=== PATIENT | female | born 1985 | race African-American/Black ===

== ENCOUNTER 2020-10-20 08:56 | Outpatient (CLI) | payer BC, SELFPAY ==
--- NOTE | ~2020-10-20 | MM_ITS ---
EXAMINATION: MM screening nemo BI w dennis HISTORY: Screening TECHNIQUE: Craniocaudal and mediolateral oblique 3-D tomosynthesis images were obtained and synthetic 2-D images were generated. CAD analysis was submitted and interpreted. COMPARISON: 09/22/2015 BREAST PARENCHYMAL COMPOSITION: The breasts are extremely dense, which lowers the sensitivity of mamm ography. FINDINGS: There is a focal mass in the central aspect of the left breast posteriorly, best seen on CC dennis image 25. The right breast is stable without evidence for malignancy. IMPRESSION: 1. New right breast mass centrally and posteriorly, best seen on CC tomographic image 25. 2. Additional mammographic views and possible breast ultrasound are recommended. BI-RADS Category 0: Incomplete: Needs additional imaging evaluation. Reviewed, dictated and finalized at location A. IMPRESSION: 1. New right breast mass centrally and posteriorly, best seen on CC tomographic image 25. 2. Additional mammographic views and possible breast ultrasound are recommended . BI-RADS Category 0: Incomplete: Needs additional imaging evaluation.
== END 2020-10-20 08:57 | disposition home or self-care (01) ==
LOC: ANHIMG 09:02
PROVIDERS: Visit Provider Physician Assistant
DX: Z12.31 Encounter for screening mammogram for malignant neoplasm of breast (principal); R92.8 Other abnormal and inconclusive findings on diagnostic imaging of breast
CPT/HCPCS: 77063; 77067

== ENCOUNTER 2020-11-24 11:49 | Outpatient (CLI) | payer BC, SELFPAY ==
--- NOTE | ~2020-11-24 | MMUS_ITS ---
EXAMINATION: MM diagnostic mammo unilat LT, US breast LT complete HISTORY: Follow-up left breast asymmetry TECHNIQUE: Additional 3-D tomosynthesis images of the left breast were performed and synthetic 2-D im ages were generated. CAD analysis was submitted and interpreted. High resolution left breast ultrasou nd was performed. COMPARISON: Comparison to multiple prior studies sequentially, with oldest reviewed study dated 09/21. BREAST PARENCHYMAL COMPOSITION: The breasts are extremely dense, which lowers the sensitivity of mamm ography FINDINGS: MAMMOGRAPHIC FINDINGS: There are no suspicious masses, calcifications or architectural distortion in the left breast to sugg est malignancy. There is a benign-appearing radiolucent mass in the central aspect of the left breast measuring approximately 1.5 cm. ULTRASOUND: Complete left breast ultrasound: At 10:00, 3 cm from the nipple, there is a 5 mm cyst. This does not definitely correspond to the mammographic finding. No other discrete masses are identified. IMPRESSION: 1. Probable benign left breast mass by mammography without definite sonographic correlate. 2. Recommend 6 month follow-up diagnostic left mammogram and left breast ultrasound BI-RADS category 3, probably benign findings. Reviewed, dictated and finalized at location A. IMPRESSION: 1. Probable benign left breast mass by mammography without definite sonographic correlate. 2. Recommend 6 month follow-up diagnostic left mammogram and left breast ultras ound BI-RADS category 3, probably benign findings.
== END 2020-11-24 11:50 | disposition home or self-care (01) ==
PROVIDERS: Visit Provider Physician Assistant
DX: N63.22 Unspecified lump in the left breast, upper inner quadrant (principal)
CPT/HCPCS: 76641; 77065

== ENCOUNTER → 2022-02-18 10:35 | Outpatient (CLI) | payer OTHER, SELFPAY ==
--- NOTE | ~2022-02-18 | US_ITS ---
US abdomen complete EXAMINATION: US Abdomen Complete INDICATION: Unspecified abdomen pain. PROCEDURE: Realtime High Resolution abdomen ultrasound. COMPARISON: No prior studies for comparison FINDINGS: Gallbladder within normal limits. No gallstones, pericholecystic fluid, gallbladder wall t hickening or biliary dilatation. Common bile duct measures 3 mm. Liver echotexture is increased, consistent with fatty infiltration.. Pancreas within normal limits. Pancreatic tail is obscured by bowel gas. Spleen is unremarkeable. Renal echotexture is within norm al limits bilaterally without hydronephrosis, contour deforming mass or renal stone. Right kidney abisai sures 11.1 cm. Left kidney measures 11.7 cm. Visualized aspects of the aorta and IVC are within normal limits. Portal vein is patent. No sonograph ic Espinosa's sign indicated by the technologist. IMPRESSION: 1: Hepatic steatosis. Reviewed, dictated and finalized at location A. IMPRESSION: 1: Hepatic steatosis.
== END ==
PROVIDERS: PCP Physician Assistant; Visit Provider Physician Assistant
DX: R10.9 Unspecified abdominal pain (principal); K76.0 Fatty (change of) liver, not elsewhere classified
CPT/HCPCS: 76700

== ENCOUNTER → 2022-09-12 15:53 | Outpatient (CLI) | payer OTHER, SELFPAY ==
--- NOTE | ~2022-09-12 | US_ITS ---
EXAMINATION: US pelvic complete DATE: 09/12/2022 16:12 INDICATION: Excessive and irregular bleeding TECHNIQUE: Multiple transabdominal and endovaginal sonographic images of the pelvis were obtained. COMPARISON: 08/02/2012 FINDINGS: The uterus measures 7.4 x 4.1 x 4.5 cm. The endometrial complex measures 7 mm. The right ov michelle measures 4.1 x 4.1 x 4.3 cm and contains a 3.3 cm cyst. The left ovary measures 2.1 x 2.7 x 2.1 c m. There is normal vascular flow in the ovaries. There is no free fluid in the pelvis. IMPRESSION: 1. No sonographic correlate for the patient's symptoms. Reviewed, dictated and finalized at location A. OF TOWN COLLECTION CLERK
== END ==
PROVIDERS: PCP Nurse Practitioner; Visit Provider Nurse Practitioner
DX: N92.6 Irregular menstruation, unspecified (principal)
CPT/HCPCS: 76856

== ENCOUNTER → 2023-08-11 15:01 | Outpatient (CLI) | payer OTHER, SELFPAY ==
--- NOTE | ~2023-08-11 | US_ITS ---
EXAMINATION: US pelvic complete w TV DATE: 08/11/2023 15:36 INDICATION: Abnormal uterine bleeding TECHNIQUE: Multiple transabdominal and endovaginal sonographic images of the pelvis were obtained. COMPARISON: 09/12/2022 FINDINGS: The uterus measures 7.9 x 3.6 x 6.1 cm. There is a 3.8 x 3.9 cm hypoechoic mass of the post erior uterine body which has the appearance of an intramural fibroid. The endometrial complex measure s 5 mm. The right ovary measures 1.8 x 1.3 x 1.1 cm. The left ovary measures 3.2 x 2.2 x 3 cm. There is normal vascular flow in the ovaries. There is no free fluid in the pelvis. IMPRESSION: 1. Intramural uterine fibroid. Reviewed, dictated and finalized at location F. ATIONAL ASSISTANT
== END ==
PROVIDERS: PCP Nurse Practitioner; Visit Provider Nurse Practitioner
DX: N93.8 Other specified abnormal uterine and vaginal bleeding (principal); D25.9 Leiomyoma of uterus, unspecified
CPT/HCPCS: 76830; 76856

== ENCOUNTER 2024-09-13 10:21 | Outpatient (CLI) | payer BC, SELFPAY ==
--- NOTE | ~2024-09-13 | US_ITS ---
Right ABDOMINAL wall ULTRASOUND (Doppler ultrasound interrogation techniques used as needed for this exam.) Ordering provider: Aida Stark, DO History: . Abd wall lump . Comparison: None. FINDINGS/impression: Isoechoic tissue with no definite borders seen in the areas of concern. Reviewed, dictated and finalized at location A. WINDING MACHINE OPERATOR
== END 2024-09-13 10:22 | disposition home or self-care (01) ==
PROVIDERS: PCP Family Medicine; Visit Provider Family Medicine
DX: R93.89 Abnormal findings on diagnostic imaging of other specified body structures (principal)
CPT/HCPCS: 76705

== ENCOUNTER 2024-11-14 10:28 | Outpatient (CLI) | payer BC, SELFPAY ==
--- NOTE | ~2024-11-14 | MMUS_ITS ---
EXAMINATION: MM diagnostic nemo BI w dennis, US breast RT complete HISTORY: Palpable right breast abnormality TECHNIQUE: Additional 3-D tomosynthesis images of the breasts were performed and synthetic 2-D images were generated. CAD analysis was submitted and interpreted. High resolution complete right breast ul trasound was performed. COMPARISON: Comparison to multiple prior studies sequentially, with oldest reviewed study dated 09/21. BREAST PARENCHYMAL COMPOSITION: Dense: The breasts are extremely dense, which lowers the sensitivity of mammography. FINDINGS: MAMMOGRAPHIC FINDINGS: There is a developing mass in the upper outer quadrant of the right breast, posterior third. There is stable left mammogram without evidence for malignancy. No new masses, calcifications or architectura l distortion to suggest malignancy. ULTRASOUND: Complete US of all 4 quadrants of the right breast/s and retroareolar region was reviewed. In the are a of mammographic concern at 10:00, 6 cm from the nipple there is a 3.1 cm simple cyst. At 2:00, 6 cm from the nipple there is a 8 mm cyst. No suspicious masses to suggest malignancy. IMPRESSION: 1. No evidence for malignancy in the right breast. Benign findings. 2. Routine yearly screening mammogram and regular clinical breast examination are recommended. BI-RADS Category 2: Benign finding(s). Reviewed, dictated and finalized at location A. IMPRESSION: 1. No evidence for malignancy in the right breast. Benign findings. 2. Routine yearly screening mammogram and regular clinical breast examination a re recommended. BI-RADS Category 2: Benign finding(s).
--- OUTSIDE RECORDS SUMMARY | 2024-11-14 10:46 | XMS_ITS | Encounter Summary ---
Author Organization [facility] Address [address] [place] [id number] Care Team Providers Care Clinical Quality Assurance Associate Name Role Phone Aida Stark DO Primary Care Provider [phone] Encounter Details Date Type Department Care Team (Latest Contact Info) Description 11/05/2024 Scan [facility] INFO SRVCS Scanned, Doc Med Group Social History Tobacco Use Types Packs/Day Years Used Date Smoking Tobacco: Never Smokeless Tobacco: Never Alcohol Use Standard Drinks/Week Comments Never 0 (1 standard drink = 0.6 oz pur e alcohol) PHQ-2 Answer Date Recorded Patient Health Questionnaire-2 Score 0 09/05/2024 Comments No Sex and Gender Information Value Date Recorded Sex Assigned at Female 09/05/2024 10:23 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 [place] [address] Aida Stark DO [address], [address] [place] [address] documented as of this encounter Visit Diagnoses Not on filedocumented in this encounter Care Teams Clinical Quality Assurance Associate Relationship Specialty Start Date End Date Aida Stark DO [address] [place] [address] PCP - General FAMILY PRACTICE 08/30/24 documented as of this encounter
--- OUTSIDE RECORDS SUMMARY | 2024-11-14 10:46 | XMS_ITS | Clinical Summary ---
Author Organization [facility] Address [address] [place] [address] Care Team Providers Care Document Image Technician Name Role Phone Denia Kaur Primary Care Pr ovider Source Comments [facility],non-owned Affiliates and Associated Physician Practices is amultiple site organization consisting of ambulatory clinics and hospital sitesin [place], [place], [place] and [place]. This disclosure is being madepursuant to the Care Everywhere program and may not contain all information available regarding this patient. Last updated 18.[facility] Immunizations Immunization Administration Dates Next Due FLU VACCINE QUAD IIV4 PF ID 05/18/2016 INFLUENZA VACCINE, QUADR. 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 Gender Identity Not on file Sexual Orientation Not on file Plan of Treatment Health Maintenance Due Date Last Done Comments LIPID TESTING 1984 MAMMOGRAM 1984 HIV SCREENING 01/20/1999 HEPATITIS C SCREENING 01/16/2002 DTAP/TDAP/TD VACCINES (1 - Tdap) 01/20/2003 HEPATITIS B VACCINE (1 of 3 - 19+ 3-dose series) 01/20/2003 COVID-19 VACCINE ( - 2023-2 5 season) 2024 DEPRESSION SCREENING 07/10/2024 INFLUENZA VACCINE (Season Ended) 2025 05/25/2017, 05/18/2016 ZOSTER VACCINE (1 of 2) 01/20/2034 HIB VACCINE Aged Out No longer eligi ble based on patient's age to complete this topic HPV VACCINE Aged Out No longer eligi ble based on patient's age to complete this topic MENINGOCOCCAL (Group B) VACCINE SHARED DECISION-MAKING Aged Out No longer eligible based on patient's age to complete this topic MENINGOCOCCAL GROUPS A/C/Y/W VACCINE Aged Out No longer eligible b ased on patient's age to complete this topic PNEUMOCOCCAL VACCINE Aged Out No long er eligible based on patient's age to complete this topic Insurance ANTHEM Care Teams Document Image Technician Relationship Specialty Start Date End Date Denia Kaur PA [address] [place] [address] PCP - General Physician Family Law Paralegal 05/18/16
--- OUTSIDE RECORDS SUMMARY | 2024-11-14 10:46 | XMS_ITS | Clinical Summary ---
Author Organization [facility] Address [address] [place] [address] Care Team Providers Care Photoengraver Apprentice Name Role Phone Denia Cerrato Primary Care Provider [phone] Allergies No known active allergies Medications No known medications Active Problems Problem Noted Date Diagnosed Date SOB (shortness of breath) 05/25/2018 Other chest pain 04/22/2018 Palpitations 04/22/2018 Family History Medical History Relation Name Comments Stroke Father EF Breast Cancer Maternal Aunt 1 50s and ano ther in late 60s Breast Cancer Maternal Aunt 2 LB Breast Cancer Maternal Aunt 3 CJ Stroke Maternal Grandfather EJ Lung Cancer Maternal Uncle DJ late 60s Hypertension Mother ED Breast Cancer Paternal Aunt Stroke Paternal Grandmother IK Stroke Paternal Uncle NF Ovarian Cancer Neg Hx Relation Name Status Comments Brother Alive Father EF Alive Maternal Aunt 1 Maternal Aunt 2 LB Maternal Aunt 3 CJ Maternal Grandfather EJ Maternal Uncle DJ Mother ED Alive Paternal Aunt Paternal Grandmother IK Paternal Uncle NF Sister Alive Social History Tobacco Use Types Packs/Day Years Used Date Smoking Tobacco: Never Smokeless Tobacco: Never Tobacco Cessation:Counseling Given: Yes Alcohol Use Standard Drinks/Week Comments Never 0 (1 standard drink = 0.6 oz pur e alcohol) Comments No Sex and Gender Information Value Date Recorded Sex Assigned at Not on file Legal Sex Female 8:33 AM CDT Gender Identity Not on file Sexual Orientation Not on file Last Filed Vital Signs Vital Sign Reading Time Taken Comments Blood Pressure 139/100 12/30/2021 2:09 PM CDT Pulse 84 12/30/2021 2:09 PM CDT Temperature - - Respiratory Rate - - Oxygen Saturation 98% 05/31/2019 9:24 AM BELT WEAVER Inhaled Oxygen Concentration - - Weight 72.6 kg (160 lb) 12/30/2021 2:09 PM CDT Height 147.3 cm (4' 10) 12/30/2021 2:09 PM CDT Body Mass Index 33.44 12/30/2021 2:09 PM CDT Plan of Treatment Health Maintenance Due Date Last Done Comments DTAP/TDAP/TD VACCINES (1 - Tdap) 01/20/2003 HEPATITIS B VACCINES (1 of 3 - 19+ 3-dose series) 01/20/2003 HPV/Cotest (21-29) 01/20/2005 CERVICAL CANCER SCREENING 01/20/2014 HPV/Cotest (30-65) 01/20/2014 PAP SMEAR 01/20/2014 BREAST CANCER SCREENING 2024 01/14/20, 12/30/2021, 06/29/2021 INFLUENZA VACCINE (#1) 2024 7, 05/18/2016 HPV VACCINES Aged Out No longer eligi ble based on patient's age to complete this topic Procedures Procedure Name Priority Date/Time Associated Diagnosis Comments MAMMO 3D SOHEILA SCREEN BILAT W OR WO CAD Routine 01/13/2023 11:05 AM CDT Visit for screening mammogram from Last 3 Months or Most Recently Relevant to Health Maintenance Results * MAMMO SCRN BILAT 3D SOHEILA W OR WO CAD (01/13/2023 11:05 AM CDT) Anatomical Region Laterality Modality Breast Bilateral Mammography 01/13/2023 11:0 5 AM CDT Impressions 01/13/2023 11:40 AM CDT IMPRESSION: 1. New mass within the right breast at the 11:00 position that may represent a cyst. OVERALL FINAL ASSESSMENT: BI-RADS CATEGORY 0: Incomplete, needs additional imaging evaluation RECOMMENDATIONS: 1. Recommend right breast ultrasound followed by diagnostic mammogram if necessary. Narrative 01/13/2023 11:40 AM CDT BILATERAL SCREENING DIGITAL MAMMOGRAM WITH 3D TOMOSYNTHESIS AND CAD DATE: 01/13/2023 11:05 AM DICTATION LOCATION: [facility] HISTORY: Annual screening mammogram. TECHNIQUE: Standard images of both breasts were obtained on a digital system. 2D and 3D acquisitions were obtained of both breasts. CAD was utilized. COMPARISON: Studies dating back to 10/20/2020 BREAST COMPOSITION: The breasts are heterogeneously dense, which may obscure small masses. FINDINGS: There are new dominant mass is identified within the right breast at the 10 to 11:00 position measuring up to 2 cm that may represent developing cysts. The remainder of the right breast and the contralateral left breast are unremarkable. Procedure Note Renzo Vanessa MD - 01/13/2023 BILATERAL SCREENING DIGITAL MAMMOGRAM WITH 3D TOMOSYNTHESIS AND CAD DATE: 01/13/2023 11:05 AM DICTATION LOCATION: [facility] HISTORY: Annual screening mammogram. TECHNIQUE: Standard images of both breasts were obtained on a digital system. 2D and 3D acquisitions were obtained of both breasts. CAD was utilized. COMPARISON: Studies dating back to 10/20/2020 BREAST COMPOSITION: The breasts are heterogeneously dense, which may obscure small masses. FINDINGS: There are new dominant mass is identified within the right breast at the 10 to 11:00 position measuring up to 2 cm that may represent developing cysts. The remainder of the right breast and the contralateral left breast are unremarkable. IMPRESSION: 1. New mass within the right breast at the 11:00 position that may represent a cyst. OVERALL FINAL ASSESSMENT: BI-RADS CATEGORY 0: Incomplete, needs additional imaging evaluation RECOMMENDATIONS: 1. Recommend right breast ultrasound followed by diagnostic mammogram if necessary. Anjelica Hampton MD MAMMO ORDERABLES Final Result from Last 3 Months or Most Recently Relevant to Health Maintenance Insurance [facility] [id number] Care Teams Photoengraver Apprentice Relationship Specialty Start Date End Date Denia Cerrato PA PCP - General Physician Laborer Pipeline 05/25/18
--- OUTSIDE RECORDS SUMMARY | 2024-11-14 10:46 | XMS_ITS | Clinical Summary ---
Author Organization 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 Gender Identity Not on file Sexual Orientation Not on file Last Filed Vital Signs Vital Sign Reading Time Taken Comments Blood Pressure 138/87 07/07/2011 7:04 PM RECORD CHANGER TESTER Pulse 102 07/07/2011 7:04 PM RECORD CHANGER TESTER Temperature 37.2 C (98.9 F) 07/07/2011 7:04 PM RECORD CHANGER TESTER Respiratory Rate 16 07/07/2011 7:04 PM RECORD CHANGER TESTER Oxygen Saturation 99% 06/03/2011 9:56 PM RECORD CHANGER TESTER Inhaled Oxygen Concentration - - Weight 64.4 kg (142 lb) 07/07/2011 7:04 PM RECORD CHANGER TESTER Height 149.9 cm (4' 11) 07/07/2011 7:04 PM RECORD CHANGER TESTER Body Mass Index 28.68 07/07/2011 7:04 PM RECORD CHANGER TESTER Plan of Treatment Health Maintenance Due Date Last Done Comments Hepatitis C Virus (HCV) Screening 1984 TdaP Immunization 1984 Hepatitis B Immunization (1 of 3 - 19+ 3-dose series) 01/20/2003 Pap Smear 01/20/2005 Cervical Cancer Screening (CCS) 01/20/2014 HPV/Cotest 01/20/2014 Discussion re Starting/Frequ ency of Mammograms 2024 Influenza Immunization (#1) 2024 SARS-COV-2 Immunization (2023- season) 2024 Respiratory Syncytial Virus (RSV) Immunization (Adult) (1 - 1-dose 75+ series) 01/20/2059 Meningococcal Immunization (ACWY) Aged Out No longer eligible based on patient's age to complete this topic Pneumococcal Immunization Combined Aged Out No longer eligible based on patient's age to complete this topic Rotavirus Immunization Aged Out No lo nger eligible based on patient's age to complete this topic Care Teams Ingot Passer Relationship Specialty Start Date End Date Provider, None [place] PCP - General 06/03/11
--- OUTSIDE RECORDS SUMMARY | 2024-11-14 10:46 | XMS_ITS | Clinical Summary ---
Author Organization [facility] Address Critical access hospital[address] [place] [address] Care Team Providers Care Parts Processor Name Role Phone Aida Stark DO Primary Care Provider [phone] Allergies Active Allergy Reactions Criticality Noted Date Comments Codeine Nausea Only 09/05/2024 Medications loratadine (CLARITIN) 10 MG tablet Take 1 tablet (10 mg total) by mouth daily. Active mometasone furoate (ELOCON) 0.1 % solution APPLY EXTERNALLY TO SCALP ONCE TO TWICE DAILY NEEDED. RUB IN. DO NOT RINSE 5 Active vitamin D3 (CHOLECALCIFEROL ) 1.25 mg capsuleIndicatio ns:Vitamin D deficiency Take 1 capsule (50,000 Units total) by mouth once a week for 8 doses. 4 capsule 1 5 025 Active amLODIPine (NORVASC) 5 MG tabletIndication s:Primary hypertension Take 1 tablet (5 mg total) by mouth daily. 30 tablet 2 5 025 Active vitamin D3 (CHOLECALCIFEROL ) 1.25 mg capsuleIndicatio ns:Vitamin D deficiency Take 1 capsule (50,000 Units total) by mouth once a week for 12 doses. 12 capsule 5 025 Discontin ued(Reord er) amLODIPine (NORVASC) 10 MG tabletIndication s:Primary hypertension Take 1 tablet (10 mg total) by mouth daily. 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 Need for prophylactic vaccination against hepati tis B virus 10/04/2024 Overview (10/08/2024): 10/08/2024: Titers returned low. Counseled patient that I recommend she have entire 3 dose hepatitis B vaccine series. She would like to return another day for her first immunization. Assessment & Plan (10/31/2024 10:49 AM CDT): Discussed with patient that it is recommended she receive hepatitis B vaccine as she is not immune and will require if she is attempting to get as hepatitis B can be transferred from mother to child. Hepatitis B vaccine is ordered and patient can receive at any time if she would like to come in for nurse visit. Assessment & Plan (10/08/2024 9:17 AM CDT): 10/08/2024: Titers returned low. Counseled patient that I recommend she have entire 3 dose hepatitis B vaccine series. She would like to return another day for her first immunization. Hepatitis B immunization ordered. She was given [facility] VIS to review. Primary hypertension 09/24/2024 Overview (10/31/2024): Diagnosis: 09/24/2024 Regimen: Amlodipine 5mg daily GFR: > 90, 09/05/2024 Urine microalbumin to creatinine ratio: Ordered Blood pressure monitoring device at home: Yes, Omron arm cuff 09/24/2024: She reports she started taking her blood pressure at home 09/18/2024 and took BP once per day Systolic ranged from 136-146 Diastolic range from 96-105 She used Omron arm cuff at home In office, her BP cuff measured 140/107 10/08/2024: She has been taking her blood pressure measurements at home and systolic blood pressure have been between 106-160 and diastolic blood pressure measurements have been between 84-104. She reports no complaints or concerns after starting amlodipine 5 mg daily. She reports she had a headache a few days afterwards and went to pharmacy and was told she could take Tylenol. BP cuff from home in office read 123/92 10/31/2024: She reports blood pressure readings at home ar around 107/77. She reports she has been taking amlodipine 5mg daily as she was hesitant to increase and concerned it may drop her blood pressure too much. Blood pressure cuff from home in office on left arm read 112/83. Assessment & Plan (10/31/2024 10:51 AM CDT): Diastolic blood pressure is mildly elevated in office. Discussed with patient we will continue amlodipine 5 mg daily. I like her to continue to monitor her blood pressure at home. She is counseled again regarding diet and lifestyle modifications that can help improve her blood pressure. Urine microalbumin to creatinine ratio ordered. Patient is to bring back urine sample from first morning urine to have lab sent off. Assessment & Plan (10/08/2024 9:19 AM CDT): Blood pressure is elevated in office today and at home. Would like to increase amlodipine to 10 mg daily. Discussed with patient low-sodium diet and lifestyle modifications regarding exercise and diet that can help improve blood pressure. I would like her to continue to monitor her blood pressure at home and bring in log to next appointment. Assessment & Plan (09/24/2024 8:23 AM CDT): Blood pressure remained elevated in office. I am diagnosing patient with hypertension. I recommend we start medication therapy and patient is agreeable. Will start amlodipine 5 mg once daily. She reports she cannot swallow most pills however instructed she can crush her amlodipine. Patient instructed to continue monitoring blood pressure at home and bring in log at next visit in 2 weeks. She is counseled on potential side effects of medication. Chronic seborrheic dermatitis 09/05/2024 Overview (09/05/2024): Initial visit 09/05/2024: She reports she is following with dermatology and is using prescription topical treatment for seborrheic dermatitis on her scalp. Dense breast tissue 09/05/2024 Overview (09/05/2024): Initial visit 09/05/2024: She send previous mammogram and noted dense breast tissue and had to have additional imaging Uterine fibroid 09/05/2024 Overview (09/05/2024): Initial visit 09/05/2024: She reports she has uterine fibroid. She reports she has had a uterine polyp removed during hysteroscopy in the past. Family history of hypertension 09/05/2024 Overview (09/05/2024): Initial visit 09/05/2024: In multiple family members Family history of stroke 09/05/2024 Overview (09/05/2024): Initial visit 09/05/2024: In multiple family members particularly on paternal side Breast cancer screening by mammogram 09/05/2024 Overview (10/31/2024): Initial visit 09/05/2024: She reports last mammogram was in 2022. She is requesting order for mammogram. She reports she has dense breast tissue and previous lump was found and required additional mammogram and ultrasound. 10/31/2024: She reports she went to see systems admin on Monday and lump was found in breast and so diagnostic mammogram and ultrasound was ordered for November 14, 2024. Assessment & Plan (10/31/2024 10:12 AM CDT): Counseled to keep appointment for diagnostic mammogram and ultrasound. Assessment & Plan (09/05/2024 12:01 PM CORE DRILL OPERATOR HELPER): Screening mammogram ordered to [facility] History of surgical removal of keloid 09/05/2024 Overview (09/05/2024): Initial visit 09/05/2024: She reports she has had 2 keloids removed. One was on her right ear related to ear piercing and one was on lower extremity related to scar from injury. Abdominal wall lump 09/05/2024 Overview (10/31/2024): Initial visit 09/05/2024: She reports she noticed a lump on abdomen a few months ago. She denies change in size or character. She denies abdominal pain at the area. She denies previous trauma to that site. She denies previous injections into her abdomen. She denies any changes in her bowels or bladder or other systemic physical changes. She denies previous experience similar to this. 09/24/2024: U/S 09/13/2024 showed Isoechoic tissue with no definite borders seen in the areas of concern. Patient reports that she did have an accidental fall where she hit that side of her abdomen several months ago. 10/31/2024: She reports she is yet to have CT. She is asking if we can order MRI in lieu. Assessment & Plan (10/31/2024 10:48 AM CDT): Discussed with patient that I would recommend CT at this time. I would like her to prioritize her diagnostic mammogram prior to CT abdomen. Assessment & Plan (10/08/2024 9:21 AM CDT): Unsure what the mass/lump is. Ultrasound shows that tissue appears similar to surrounding tissues. Discussed with patient that I would like to order further imaging with CT exam to better differentiate. My suspicion is that this could potentially be related to her body scar formation as she has a predisposition to forming keloids and she did have minor trauma to that area prior to onset. Assessment & Plan (09/24/2024 8:27 AM CDT): Again, unsure what the mass/lump is. Ultrasound shows that tissue appears similar to surrounding tissues. Discussed with patient that we may need further imaging with CT exam and/or biopsy to distinguish tissue. Could potentially be related to her body scar formation as she has a predisposition to forming keloids and she did have minor trauma to that area prior to onset. Assessment & Plan (09/05/2024 12:07 PM CORE DRILL OPERATOR HELPER): Superficial, palpable approximately 5 cm x 3 cm lump/mass in right upper quadrant of abdomen approximately 5 cm superior lateral to umbilicus. Unknown etiology at this time. Would like to obtain ultrasound to characterize more. Vitamin D deficiency 11/03/2023 Overview (10/31/2024): Initial visit 09/05/2024: She reports she was being treated with vitamin D supplementation prescription. She reports she has not been taking for several months. She reports this was not reevaluated with lab work. 09/24/2024: She reports she has not started vitamin D supplementation yet. Component Ref Range & Units 09/05/24 1155 VITAMIN D 25 HYDROXY TOTAL S/P/B 30 - 100 NG/ML 8.6 Low 10/31/2024: She reports pharmacy only gave her 4 capsules at a time and she needs additional vitamin D. Assessment & Plan (10/31/2024 10:14 AM CDT): As pharmacy only gave patient 4 capsules at a time, will refill for 4 capsules for the next 4 weeks and please refill so she can take vitamin D3 once weekly. Plan to recheck levels after patient completes course of high-dose vitamin D3. Assessment & Plan (09/24/2024 8:24 AM CDT): She is instructed to take daily multivitamin and we will supplement with high-dose vitamin D3 supplementation 50,000 IU once weekly for 12 weeks and then recheck levels. Assessment & Plan (09/05/2024 11:59 AM CORE DRILL OPERATOR HELPER): Vitamin D levels ordered. 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 Mixed hyperlipidemia 02/10/2023 Overview (09/24/2024): Initial visit 09/05/2024: She reports she has been diagnosed with high cholesterol. She reports she has not been on medication. Component Ref Range & Units 09/05/24 1155 CHOLESTEROL <200 MG/DL 216 High TRIGLYCERIDES <150 MG/DL 63 HDL >40 MG/DL 54 LDL-C <100 MG/DL 149 High VLDL CALCULATION 5 - 28 MG/DL 13 CHOL/HDL RATIO 0.0 - 4.0 4.0 LDL/HDL 0.41 - 2.13 2.8 High NON HDL CHOLESTEROL <140 MG/DL 162 High Assessment & Plan (09/24/2024 8:25 AM CDT): This patient's ASCVD risk score is relatively low, we do not necessarily need to start medication at this time. I recommend in the setting of patient's age and comorbidities that she have CT calcium score evaluation. She is agreeable. She is counseled that this is an [id number] cost. Patient counseled on important dietary interventions that can help decrease cholesterol such as increasing intake of dietary fiber through whole grains and legumes as well as fruits and vegetables and decreasing intake of saturated fats such as meat and eggs. Patient is counseled that recommended daily amount of dietary fiber for women is 25 g however I recommend she aim for at least 30 g. She can supplement diet with psyllium husk such as found in Metamucil daily in addition to increasing dietary intake of whole grains, fruits and vegetables. The 10-year ASCVD risk score (Arabella BEVERLY, et al., 2019) is: 0.7% Values used to calculate the score: Age: 39 years Sex: Female Is Non- : Yes Diabetic: No Tobacco smoker: No Systolic Blood Pressure: 130 mmHg Is BP treated: No HDL Cholesterol: 54 MG/DL Total Cholesterol: 216 MG/DL Assessment & Plan (09/05/2024 12:00 PM CORE DRILL OPERATOR HELPER): Fasting lipid panel ordered today. Hyperinsulinism 02/10/2023 Palpitations 04/22/2018 Overview (09/05/2024): Initial visit 09/05/2024: She reports she expresses occasional palpitations particularly when drinking soda such as root beer. She reports these are not persistent. Lumbago 04/14/2015 Vaginospasm 10/30/2014 Overview (09/05/2024): Initial visit 09/05/2024: She reports this is still current. She follows with PATHOLOGY LABORATORY DIRECTOR. Normocytic anemia 02/11/2013 Overview (09/24/2024): Component Ref Range & Units 09/05/24 1155 WBC 4.00 - 10.80 x10'3/uL 4.37 RBC 4.10 - 5.40 x10'6/uL 4.23 HGB 12.0 - 16.0 G/DL 11.3 Low HCT 36.0 - 47.0 % 33.8 Low MCV 78.0 - 100.0 FL 79.9 MCH 27.0 - 31.0 PG 26.7 Low MCHC 33.0 - 36.0 G/DL 33.4 RDW 11.5 - 14.5 % 13.2 PLT 150 - 350 x10'3/uL 227 MPV 7.4 - 10.4 FL 10.4 Assessment & Plan (09/24/2024 8:23 AM CDT): Anemia is mild. I suspect related to occasional heavy menstrual bleeding. No concerns at this time. Will continue to monitor. Patient instructed to take daily multivitamin. Resolved Problems Problem Noted Date Diagnosed Date Resolved Date Cellulitis of face 09/05/2024 Elevated blood-pressure read ing without diagnosis of hypertension 09/05/2024 09/24/2024 Overview (09/05/2024): Initial visit 09/05/2024: She denies previous diagnosis of hypertension however reports she has been told her blood pressure has been elevated in the past. Assessment & Plan (09/05/2024 11:59 AM CORE DRILL OPERATOR HELPER): Discussed with patient that blood pressure is elevated in the setting of elevated blood pressure and family history, I would like her to obtain blood pressure monitoring device and take blood pressure measurements at home and keep log and bring in log and device at next appointment. She was instructed on how to take blood pressure measurements appropriately. Frontal sinusitis 09/05/2024 09/05/2024 Frontal headache 09/05/2024 09/05/2024 Pain of breast 09/05/2024 09/05/2024 Need for diphtheria-tetanus- pertussis (Tdap) vaccine 09/05/2024 09/24/2024 Overview (09/24/2024): Initial visit 09/05/2024: She reports it has been over 10 years since last Tdap booster. Tdap booster given 09/05/2024 Assessment & Plan (09/05/2024 12:06 PM CORE DRILL OPERATOR HELPER): Tdap booster given today. She was given CDC VIS. She is counseled on potential side effects. Acute urinary tract infection 02/10/2023 09/05/2024 Impaired fasting glucose 02/10/2023 Overview (09/24/2024): Initial visit 09/05/2024: She reports she has been told her fasting glucose has been elevated in the past. 09/24/2024: Fasting blood glucose returned on [facility] at 92 09/05/2024. Assessment & Plan (09/05/2024 12:00 PM CORE DRILL OPERATOR HELPER): Fasting CMP ordered today. Left sided abdominal pain 01/24/2022 Thoracic back pain 03/06/2015 Pain in pelvis 10/30/2014 09/05/2024 Dysfunctional uterine bleeding 02/11/2013 09/05/2024 Encounters Date Type Department Care Team Description 11/05/2024 Scan [facility] INFO SRVCS Scanned, Doc Med Group 11/04/2024 Results Follow-Up [facility] [place] [address] [facility] [address] [place] [address] Aida Stark, TEST URINE, ALBUMIN URINE RANDOM W/CREATININE 11/04/2024 Travel 10/31/2024 9:20 AM CDT Office Visit [place] [id number] [place] [address] Aida Stark, Hypertension (4 week follow up. /Pt states BP has been good. /Pt states she has been checking at home. /No questions or concerns today. ) 10/31/2024 Telephone [place] [address] [place] [address] [place] [id number] Aida Stark, DO Record Request 10/31/2024 Travel 10/08/2024 8:20 AM CDT Office Visit [place] [address] [place] [address] [place] [address] Aida Stark, Hypertension (Pt states BP has been good. /Been checking at home. /No questions or concerns today./) 10/08/2024 Telephone [place] [address] [address] Aida Stark, Orders 10/08/2024 Travel 09/24/2024 7:20 AM CDT Office Visit [place] [address] [place] [address] [address] [place] [address] Aida Stark, Lab Results (Pt had labs done 09/05/2024./Results in chart. /No questions or concerns today /); Follow Up (Abdominal lump, elevated blood pressure reading) 09/24/2024 Travel 09/09/2024 Scan [facility] [place] INFO SRVCS Scanned, Doc Med Group 09/05/2024 10:20 AM CORE DRILL OPERATOR HELPER Office Visit [place] [address] [place] [address] [address] [place] [address] Aida Stark, New Patient (Pt would like to discuss a lump in her abdomen. /Been there for two months. No not painful, does not move. /Mid right side /) 09/05/2024 - 09/05/2024 11:59 PM CORE DRILL OPERATOR HELPER Hospital Encounter [facility] [address] [place] [address] Aida Stark, Discharge Disposition: Home or Self Care (Routine Discharge) 09/05/2024 Telephone [facility] - [address] [place] [address] Aida Stark DO Record Request 09/05/2024 Travel from Last 3 Months Immunizations Immunization Administration Dates Next Due Fluzone Intradermal Quad (IIV4) 05/18/2016 Influenza (Generic) 05/10/2017,07/10/2014,2013 Influenza Adult (Generic) 04/28/2020,05/23/2019, 05/23/2018,05/25/2017 Tdap (Adacel) 09/05/2024 Family History Medical History Relation Comments Hypertension Brother 1 COPD Father Stroke Father Breast Cancer Maternal Aunt Heart Disease Maternal Grandfather Hypertension Maternal Grandmother Stroke Maternal Grandmother Lung Cancer Maternal Uncle Hypertension Mother No Known Problems Paternal Grandfather Stroke Paternal Grandmother Stroke Paternal Uncle 1 Stroke Paternal Uncle 2 Graves' disease Sister 1 Relation Status Comments Brother 1 Alive Brother 2 Alive Father Maternal Aunt Maternal Grandfather Maternal Grandmother Alive Maternal Uncle Mother Alive Paternal Grandfather Paternal Grandmother Paternal Uncle 1 Paternal Uncle 2 Sister 1 Alive Sister 2 Alive Social History Tobacco Use Types Packs/Day Years Used Date Smoking Tobacco: Never Smokeless Tobacco: Never Tobacco Cessation:Counseling Given: No Alcohol Use Standard Drinks/Week Comments Never 0 (1 standard drink = 0.6 oz pur e alcohol) PHQ-2 Answer Date Recorded Patient Health Questionnaire-2 Score 0 09/05/2024 Comments No Sex and Gender Information Value Date Recorded Sex Assigned at Female 09/05/2024 10:23 AM CORE DRILL OPERATOR HELPER Legal Sex Female 9:28 AM CORE DRILL OPERATOR HELPER Gender Identity Female 09/05/2024 10:23 AM CORE DRILL OPERATOR HELPER Sexual Orientation Not on file Last Filed Vital Signs Vital Sign Reading Time Taken Comments Blood Pressure 126/82 10/31/2024 10:15 AM CDT Louisa nual cuff Pulse 90 10/31/2024 9:33 AM CDT Temperature 36 C (96.8 F) 10/31/2024 9:33 AM CDT Respiratory Rate 16 10/31/2024 9:33 AM CDT Oxygen Saturation 100% 10/31/2024 9:33 AM CDT Inhaled Oxygen Concentration - - Weight 69.9 kg (154 lb) 10/31/2024 9:33 AM CDT Height 147.3 cm (4' 10) 10/31/2024 9:33 AM CDT Body Mass Index 32.19 10/31/2024 9:33 AM CDT Plan of Treatment Upcoming Encounters Date Type Department Care Team (Late st Contact Info) Description 12/12/2024 9:40 AM CDT Office Visit [facility] [place] [address] [place], [place] [id number] Aida Stark, DO [address] [place], [place] [id number] Health Maintenance Due Date Last Done Comments Annual Physical 01/20/1987 Cervical Cancer Screening Pa p with HPV Testing (Age 30 to 64) Every 5 Years 01/20/2014 Mammogram Screening 01/13/2025 01/13/2023, 12/30/2021, 06/29/2021 Cervical Cancer Screening Pa p Smear (Age 30 to 64) Every 3 Years 08/30/2025 08/30/2022 Cervical Cancer Screening with HPV 08/30/2025 COVID-19 Vaccine ( - 2023-2 5 season) 2025 Postponed from 03/10 (Patient Refused) Hepatitis B Vaccines (1 of 3 - 19+ 3-dose series) 09/05/2025 Postponed from 01/07 (Patient/Guardian Refusal) DTaP, Tdap and Td Vaccines ( 2 - Td or Tdap) 09/05/2034 09/05/2024 Hepatitis C Completed 09/05/2024 PHQ-2 (Physician Echola) Completed 09/05/2024 HPV Vaccines Aged Out No longer eligi ble based on patient's age to complete this topic Meningococcal B Vaccine Aged Out No l onger eligible based on patient's age to complete this topic Meningococcal Vaccine Aged Out No krish hugo eligible based on patient's age to complete this topic Pneumococcal Vaccine: Pediatrics (0 to 5 Years) and At-Risk Patients (6 to 49 Years) Aged Out No longer eligible b ased on patient's age to complete this topic RSV Immunizations Under 20 Months Aged Out No longer eligible b ased on patient's age to complete this topic Procedures Procedure Name Priority Date/Time Associated Diagnosis Comments ALBUMIN URINE RANDOM W/CREATININE Routine 11/04/2024 1:28 PM CDT Primary hypertension TEST URINE Routine 11/04/2024 8:00 AM CDT Abdominal wall lump US ABD LIMITED Routine 09/13/2024 12:00 AM CORE DRILL OPERATOR HELPER Abdominal wall lump CBC W/DIFF AUTOMATED Routine 09/05/2024 11:55 AM CORE DRILL OPERATOR HELPER Annual physical exam COMPREHENSIVE METABOLIC PANEL Routine 09/05/2024 11:55 AM CORE DRILL OPERATOR HELPER Impaired fasting glucose Annual physical exam LIPID PANEL Routine 09/05/2024 11:55 AM CORE DRILL OPERATOR HELPER Mixed hyperlipidemia Annual physical exam VITAMIN D, 25 OH Routine 09/05/2024 11:5 5 AM CORE DRILL OPERATOR HELPER Vitamin D deficiency Annual physical exam TSH W/REFLEX Routine 09/05/2024 11:55 AM CORE DRILL OPERATOR HELPER Screening for thyroid disorder Annual physical exam URINALYSIS, AUTO, COMPLETE Routine 09/05/2024 11:55 AM CORE DRILL OPERATOR HELPER Screening for blood or protein in urine Annual physical exam HEPATITIS C ANTIBODY Routine 09/05/2024 11:55 AM CORE DRILL OPERATOR HELPER Annual physical exam Encounter for hepatitis C screening test for low risk patient HEPATITIS B SURFACE ANTIBODY Routine 09/05/2024 11:55 AM CORE DRILL OPERATOR HELPER Need for hepatitis B screening test HEPATITIS B SURFACE AG, EIA Routine 09/05/2024 11:55 AM CORE DRILL OPERATOR HELPER Need for hepatitis B screening test HEPATITIS B CORE AB IGM Routine 09/05/2024 11:55 AM CORE DRILL OPERATOR HELPER Need for hepatitis B screening test OUTSIDE CYTOPATH CERV/VAG INTERPRET (PAP) (SCAN ORDER) 08/30/2022 from Last 3 Months or Most Recently Relevant to Health Maintenance Results * ALBUMIN URINE RANDOM W/CREATININE (11/04/2024 1:28 PM CDT) MICROALBUMIN (U) 9.8 <20 MG/L 11/05/19 4:20 PM CDT [facility] CREATININE RANDOM (U) 63.9 MG/DL 11/04/2024 4:20 PM CDT [facility] ALBUMIN/CREAT RATIO 15.3 <30 MG/G 11/04/2024 4:20 PM CDT [facility] URINE SPECIMEN / Unknown 11/04/2024 1:28 PM CDT Aida Stark DO URINE ORDERABLES Final Result Performing Organization Address City/[facility]/ZIP Co de Phone Number [facility] [address] [place] [address], * TEST URINE (11/04/2024 8:00 AM CDT) URINE HCG TEST NEGATIVE NEGATIVE 11/04/2024 2:13 PM CDT [facility] URINE SPECIMEN FROM URETHRA / Unknown 11/04/2024 8:00 AM CDT Aida Stark DO URINE ORDERABLES Final Result Performing Organization Address City/[facility]/ZIP Co de Phone Number [facility] [address] [place] [address], [place] [phone] * US ABD LIMITED (09/13/2024 12:00 AM CORE DRILL OPERATOR HELPER) Anatomical Region Laterality Modality Abdomen Ultrasound 09/13/2024 Aida Stark DO ULTRASOUND Final Result * TSH W/REFLEX (09/05/2024 11:55 AM CORE DRILL OPERATOR HELPER) TSH 0.873 0.358 - 3.740 uIU/ML 09/05/2024 8:23 PM CORE DRILL OPERATOR HELPER [facility] 09/05/2024 11:5 5 AM CORE DRILL OPERATOR HELPER Aida Stark DO LABORATORY Final Result [facility] [address] [place] [address], * (ABNORMAL) URINALYSIS (09/05/2024 11:55 AM CORE DRILL OPERATOR HELPER) COLOR (U) YELLOW 09/05/2024 7:56 PM CORE DRILL OPERATOR HELPER [facility] TRANSPARENCY HAZY(A) CLEAR 09/05/2024 7:56 PM CORE DRILL OPERATOR HELPER [facility] SPECIFIC GRAVITY (U) 1.015 1.003 - 1.040 09/05/2024 7:56 PM CORE DRILL OPERATOR HELPER [facility] U PH 6.0 5.0 - 9.0 09/05/2024 7:56 PM CORE DRILL OPERATOR HELPER [facility] PROTEIN RANDOM (U) NEGATIVE NEGATIVE 09/05/2024 7:56 PM CORE DRILL OPERATOR HELPER [facility] GLUCOSE (U) NEGATIVE NEGATIVE 09/05/2024 7:56 PM CORE DRILL OPERATOR HELPER [facility] KETONES MG/DL (U) NEGATIVE NEGATIVE 09/05/2024 7:56 PM CORE DRILL OPERATOR HELPER [facility] BILIRUBIN (U) NEGATIVE NEGATIVE 09/05/2024 7:56 PM CORE DRILL OPERATOR HELPER [facility] BLOOD (U) NEGATIVE NEGATIVE 09/05/2024 7:56 PM [facility] UROBILINOGEN 0.2 0.0 - 2.0 EU/DL 09/05/2024 7:56 PM CORE DRILL OPERATOR HELPER [facility] NITRITES NEGATIVE NEGATIVE 09/05/2024 7:56 PM CORE DRILL OPERATOR HELPER [facility] LEUKOCYTES (U) NEGATIVE NEGATIVE 09/05/2024 7:56 PM CORE DRILL OPERATOR HELPER [facility] RBC/HPF 0-3 0 - 3 /HPF 09/05/2024 7:56 PM CORE DRILL OPERATOR HELPER [facility] WBC/HPF 0-3 0 - 3 /HPF 09/05/2024 7:56 PM CORE DRILL OPERATOR HELPER [facility] EPI/HPF 10-15 /HPF 09/05/2024 7:56 PM CORE DRILL OPERATOR HELPER [facility] BACTERIA (U) TRACE(A) NONE SEEN 09/05/2024 7:56 PM CORE DRILL OPERATOR HELPER [facility] URINE SPECIMEN FROM [facility]RETH[facility] / Unknown 09/05/2024 11:55 AM CORE DRILL OPERATOR HELPER us Aida Stark DO URINE ORDERABLES Final Result [facility] [address] [place] [address], * COMPREHENSIVE METABOLIC PANEL (09/05/2024 11:55 AM CORE DRILL OPERATOR HELPER) SODIUM S/P/B 141 136 - 145 MMOL/L 09/05/2024 8:23 PM CORE DRILL OPERATOR HELPER [facility] POTASSIUM S/P/B 4.0 3.5 - 5.1 MMOL/L 09/05/2024 8:23 PM CORE DRILL OPERATOR HELPER [facility] CHLORIDE S/P/B 105 98 - 107 MMOL/L 09/05/2024 8:23 PM CORE DRILL OPERATOR HELPER [facility] CO2 25.8 21 - 32 MMOL/L 09/05/2024 8:23 PM CORE DRILL OPERATOR HELPER [facility] GLUCOSE 92 70 - 99 MG/DL 09/05/2024 8:23 PM [facility] BUN 7 7 - 18 MG/DL 09/05/2024 8:23 PM [facility] CREATININE S/P/B 0.62 0.55 - 1.02 MG/DL 09/05/2024 8:23 PM [facility] CALCIUM S/P/B 9.0 8.4 - 10.5 MG/DL 09/05/2024 8:23 PM [facility] BILIRUBIN TOTAL S/P/B 0.3 0.2 - 1.0 MG/DL 09/05/2024 8:23 PM [facility] ALKALINE PHOSPHATASE S/P/B 64 37 - 98 U/L 09/05/2024 8:23 PM [facility] AST 18 15 - 37 U/L 09/05/2024 8:23 PM [facility] ALT 26 14 - 59 U/L 09/05/2024 8:23 PM [facility] TOTAL PROTEIN S/P/B 7.7 6.4 - 8.2 G/DL 09/05/2024 8:23 PM [facility] ALBUMIN S/P/B 3.9 3.4 - 5.0 G/DL 09/05/2024 8:23 PM [facility] ANION GAP 10.2 5 - 15 MMOL/L 09/05/2024 8:23 PM [facility] Comment:REFERENCE RANGE NOT ESTABLISHED OSMOLALITY (CALC) 290 MOSM/KG 025 8:23 PM [facility] Comment:REFERENCE RANGE NOT ESTABLISHED GFR ESTIMATE >90 >90 ML/MIN/1. 73 M2 09/05/2024 8:23 PM [facility] GFR NOTES GFR REFERENCE S: 09/05/2024 8:23 PM [facility] Comment: THE ESTIMATED GFR IS CALCULATED USING THE 2020 CKD-EPI EQUATION. THE FOLLOWING CATEGORIES FOR GRADING RENAL FUNCTION ARE RECOMMENDED BY THE [employer]NATIONAL SOCIETY OF NEPHROLOGY (KDIGO 2012 CLINICAL PRACTICE GUIDELINE). G1,NORMAL OR HIGH: >89 ml/min/1.73 m2 G2,MILDLY DECREASED: 60-89 ml/min/1.73 m2 G3A,MILDLY TO MODERATELY DECREASED: 45-59 ml/min/1.73 m2 G3B,MODERATELY TO SEVERELY DECREASED: 30-44 ml/min/1.73 m2 G4,SEVERELY DECREASED: 15-29 ml/min/1.73 m2 G5,KIDNEY FAILURE: <15 ml/min/1.73 m2 09/05/2024 11:5 5 AM CORE DRILL OPERATOR HELPER us Aida Stark DO LABORATORY Final Result [facility] [address] [place] [address], * (ABNORMAL) LIPID PANEL (09/05/2024 11:55 AM CORE DRILL OPERATOR HELPER) CHOLESTEROL 216(H) <200 MG/DL 09/05/2024 8:23 PM CORE DRILL OPERATOR HELPER [facility] TRIGLYCERIDES 63 <150 MG/DL 09/05/2024 8:23 PM [facility] HDL 54 >40 MG/DL 09/05/2024 8:23 PM CORE DRILL OPERATOR HELPER [facility] LDL-C 149(H) <100 MG/DL 09/05/2024 8:23 PM [facility] VLDL CALCULATION 13 5 - 28 MG/DL 09/05/2024 8:23 PM CORE DRILL OPERATOR HELPER [facility] CHOL/HDL RATIO 4.0 0.0 - 4.0 09/05/2024 8:23 PM [facility] LDL/HDL 2.8(H) 0.41 - 2.13 09/05/2024 8:23 PM CORE DRILL OPERATOR HELPER [facility] NON HDL CHOLESTEROL 162(H) <140 MG/DL 09/05/2024 8:23 PM [facility] 09/05/2024 11:5 5 AM CORE DRILL OPERATOR HELPER us Aida Stark DO LABORATORY Final Result Performing Organization Address [facility] Co de Phone Number [facility] [address] [place] [address], [place] [phone] * HEPATITIS C ANTIBODY (09/05/2024 11:55 AM CORE DRILL OPERATOR HELPER) HEPATITIS C AB NON-REACTI VE NON-REACT MARLENE 09/05/2024 9:57 PM CORE DRILL OPERATOR HELPER [facility] Comment: ANTIBODIES TO HCV NOT DETECTED. DOES NOT EXCLUDE THE POSSIBILITY OF EXPOSURE TO HCV. 09/05/2024 11:5 5 AM CORE DRILL OPERATOR HELPER us Aida Stark DO LABORATORY Final Result Performing Organization Address [facility] de Phone Number [facility] [address] [place] [address], [place] [phone] * HEPATITIS B SURFACE AG, EIA (09/05/2024 11:55 AM CORE DRILL OPERATOR HELPER) Pathologist [facility] HEPATITIS B SURFACE AG NON-REACTI VE NON-REACTI VE 09/05/2024 9:57 PM CORE DRILL OPERATOR HELPER [facility] Comment:HBsAg NOT DETECTED. 09/05/2024 11:5 5 AM CORE DRILL OPERATOR HELPER Aida Stark DO LABORATORY Final Result Performing Organization Address [facility] de Phone Number [facility] [address] [place] [address], [place] [phone] * (ABNORMAL) HEPATITIS B SURFACE ANTIBODY (09/05/2024 11:55 AM CORE DRILL OPERATOR HELPER) HEP B SURFACE AB 4.8(L) >9.9 MIU/ML 09/05/2024 9:57 PM CORE DRILL OPERATOR HELPER [facility] Comment:INDIVIDUAL IS CONSID ERED NOT IMMUNE TO HBV INFECTION. 09/05/2024 11:5 5 AM CORE DRILL OPERATOR HELPER Aida Stark DO LABORATORY Final Result Performing Organization Address [facility] Co de Phone Number [facility] [address] [place] [address], [place] [phone] * HEPATITIS B CORE AB IGM (09/05/2024 11:55 AM CORE DRILL OPERATOR HELPER) HEP B CORE IGM NON-REACT MARLENE NON-REACT MARLENE 09/05/2024 9:57 PM CORE DRILL OPERATOR HELPER [facility] Comment: IgM ANTI HBc NOT DETECTED. DOES NOT EXCLUDE THE POSSIBILITY OF EXPOSURE TO OR INFECTION WITH HBV. NO RETEST REQUIRED. HIGH DOSES OF BIOTIN MAY INTERFERE WITH THIS TEST RESULT. CORRELATION TO CLINICAL HISTORY AND PRESENTATION RECOMMENDED. 09/05/2024 11:5 5 AM CORE DRILL OPERATOR HELPER Aida Stark DO LABORATORY Final Result Performing Organization Address [facility] de Phone Number [facility] [address] [place] [address], [place] [phone] * (ABNORMAL) CBC W/DIFF AUTOMATED (09/05/2024 11:55 AM CORE DRILL OPERATOR HELPER) WBC 4.37 4.00 - 10.80 x10'3/uL 09/05/2024 7:38 PM CORE DRILL OPERATOR HELPER [facility] RBC 4.23 4.10 - 5.40 x10'6/uL 09/05/2024 7:38 PM CORE DRILL OPERATOR HELPER [facility] HGB 11.3(L) 12.0 - 16.0 G/DL 09/05/2024 7:38 PM CORE DRILL OPERATOR HELPER [facility] HCT 33.8(L) 36.0 - 47.0 % 09/05/2024 7:38 PM CORE DRILL OPERATOR HELPER [facility] MCV 79.9 78.0 - 100.0 FL 09/05/2024 7:38 PM [facility] MCH 26.7(L) 27.0 - 31.0 PG 09/05/2024 7:38 PM [facility] MCHC 33.4 33.0 - 36.0 G/DL 09/05/2024 7:38 PM [facility] RDW 13.2 11.5 - 14.5 % 09/05/2024 7:38 PM [facility] PLT 227 150 - 350 x10'3/uL 09/05/2024 7:38 PM [facility] MPV 10.4 7.4 - 10.4 FL 09/05/2024 7:38 PM [facility] DIFFERENTIAL TYPE AUTOMATED DIFFERENTIAL 09/05/2024 7:38 PM [facility] NEUTROPHILS % 57.3 % 09/05/2024 7:38 PM [facility] LYMPHOCYTES % 34.6 % 09/05/2024 7:38 PM [facility] MONOCYTES % 6.9 % 09/05/2024 7:38 PM [facility] EOSINOPHILS % 0.7 % 09/05/2024 7:38 PM [facility] BASOPHILS % 0.5 % 09/05/2024 7:38 PM [facility] IMMATURE GRANS % 0.0 % 09/05/2024 7:38 PM [facility] ABS. NEUTROPHILS 2.51 1.60 - 8.30 x10'3/uL 09/05/2024 7:38 PM [facility] ABS. LYMPHOCYTES 1.51 0.80 - 4.70 x10'3/uL 09/05/2024 7:38 PM [facility] ABS. MONOCYTES 0.30 0.00 - 1.50 x10'3/uL 09/05/2024 7:38 PM [facility] ABS. EOSINOPHILS 0.03 0.00 - 0.40 x10'3/uL 09/05/2024 7:38 PM CORE DRILL OPERATOR HELPER [facility] ABS. BASOPHILS 0.02 0.00 - 0.20 x10'3/uL 09/05/2024 7:38 PM CORE DRILL OPERATOR HELPER [facility] ABS. IMMATURE GRANULOCYTES 0.00 0.00 - 0.03 x10'3/uL 09/05/2024 7:38 PM CORE DRILL OPERATOR HELPER [facility] 09/05/2024 11:5 5 AM CORE DRILL OPERATOR HELPER Aida Stark DO LABORATORY Final Result Performing Organization Address [facility] de Phone Number [address] [address], * (ABNORMAL) VITAMIN D, 25 [place] (09/05/2024 11:55 AM CORE DRILL OPERATOR HELPER) Pathologist [facility] VITAMIN D 25 HYDROXY TOTAL S/P/B 8.6(L) 30 - 100 NG/ML 09/05/2024 8:23 PM CORE DRILL OPERATOR HELPER [facility] Comment: DEFICIENT <20 INSUFFICIENT 20-30 SUFFICIENT 30-100 09/05/2024 11:5 5 AM CORE DRILL OPERATOR HELPER Aida Stark DO LABORATORY Final Result Performing Organization Address City/[facility] Co de Phone Number [address] [address], [place] [phone] * PAP SMEAR (SCAN ORDER) (08/30/2022) 08/30/2022 [facility] Scanned SCANNING Final Resu lt from Last 3 Months or Most Recently Relevant to Health Maintenance Insurance [facility] Care Teams Parts Processor Relationship Specialty Start Date End Date Aida Stark DO [address] [place] [address] PCP - General FAMILY PRACTICE 08/30/24
--- OUTSIDE RECORDS SUMMARY | 2024-11-14 10:46 | XMS_ITS | Data Portability ---
Author Organization [facility], Main Office Address [address] [place] [address] Assessment No assessment recorded. Plan of Treatment Reminders Order Date Submit Date Provider Last Modified By Organization Details Last Modified Time Details Appointments None recorded. Lab CMP, serum or plasma 2022 023 [facility], [address] [facility], [place], [address], 4 21:11:44 lipid panel, serum 2022 023 [facility], [address] [facility], [place], [address], 4 21:11:43 Referral None recorded. Procedures None recorded. Surgeries None recorded. Imaging None recorded. Medication Orders amoxicillin 400 mg-potassiu m clavulanate 57 mg/5 mL oral suspension 2022 023 [id number], [address], [place], [place], [id number], 11:28:20 Patient TargetsNo targets recorded. Patient InstructionsNo instructions recorded. Reason for Referral None Reported. Results Created Date Observation Date Name Description Value Unit Range Abnormal Flag Note LastModifiedBy Organization Detail LastModifiedTime 01/29/2001/29/2022 URINA LYSIS REFLE X color yellow yellow normal Not Available [facility] [address], [place], [address], 01/29/2022 03:18:57 07/22/20 22 01/29/2022 URINA LYSIS REFLE X appearance clear clear normal Not Available [address], [address], 01/29/2022 03:18:57 01/29/20 22 01/29/2022 URINA LYSIS REFLE X specific gravity 1.011 1.001- 1.035 normal Not Available [address], [address], 01/29/2022 03:18:57 01/29/20 22 01/29/2022 URINA LYSIS REFLE X pH < or = 5.0 5.0-8. 0 normal Not Available [address], [address], 01/29/2022 03:18:57 01/29/20 22 01/29/2022 URINA LYSIS REFLE X glucose negati ve negati ve normal Not Available [address], [address], 01/29/2022 03:18:57 01/29/20 22 01/29/2022 URINA LYSIS REFLE X bilirubin negati ve negati ve normal Not Available [address], [address], 01/29/2022 03:18:57 01/29/20 22 01/29/2022 URINA LYSIS REFLE X ketones negati ve negati ve normal Not Available [address], [address], 01/29/2022 03:18:57 01/29/20 22 01/29/2022 URINA LYSIS REFLE X occult blood negati ve negati ve normal Not Available [address], [address], 01/29/2022 03:18:57 01/29/20 22 01/29/2022 URINA LYSIS REFLE X protein negati ve negati ve normal Not Available [address], [address], 01/29/2022 03:18:57 01/29/20 22 01/29/2022 URINA LYSIS REFLE X nitrite negati ve negati ve normal Not Available [address], [address], 01/29/2022 03:18:57 01/29/2001/29/2022 URINA LYSIS REFLE X leukocyte esterase negati ve negati ve normal Not Available [facility] [address], [address], 01/29/2022 03:18:57 01/29/20 22 01/29/2022 CBC (INCL UDES DIFF/ PLT) white blood cell count 4.6 thous and/u L 3.8-10 .8 normal Not Available [address], [address], 01/29/2022 03:18:56 01/29/20 22 01/29/2022 CBC (INCL UDES DIFF/ PLT) red blood cell count 4.14 lyubov on/uL 3.80-5 .10 normal Not Available [address], [address], 01/29/2022 03:18:56 01/29/2001/29/2022 CBC (INCL UDES DIFF/ PLT) hemoglobin 11.4 g/dL 11.7-1 5.5 low Not Available [address], [address], 01/29/2022 03:18:56 01/29/2001/29/2022 CBC (INCL UDES DIFF/ PLT) hematocrit 35.6 % 35.0-4 5.0 normal Not Available [address], [address], 01/29/2022 03:18:56 01/29/2001/29/2022 CBC (INCL UDES DIFF/ PLT) MCV 86.0 fL 80.0-1 00.0 normal Not Available [address], [address], 01/29/2022 03:18:56 01/29/20 22 01/29/2022 CBC (INCL UDES DIFF/ PLT) MCH 27.5 pg 27.0-3 3.0 normal Not Available [address], [address], 01/29/2022 03:18:56 01/29/20 22 01/29/2022 CBC (INCL UDES DIFF/ PLT) MCHC 32.0 g/dL 32.0-3 6.0 normal Not Available [address], [address], 01/29/2022 03:18:56 01/29/20 22 01/29/2022 CBC (INCL UDES DIFF/ PLT) RDW 12.4 % 11.0-1 5.0 normal Not Available [address], [address], 01/29/2022 03:18:56 01/29/20 22 01/29/2022 CBC (INCL UDES DIFF/ PLT) platelet count 211 thous and/u L 140-40 0 normal Not Available [address], [address], 01/29/2022 03:18:56 01/29/20 22 01/29/2022 CBC (INCL UDES DIFF/ PLT) MPV 10.4 fL 7.5-12 .5 normal Not Available [address], [address], 01/29/2022 03:18:56 01/29/20 22 01/29/2022 CBC (INCL UDES DIFF/ PLT) absolute neutrophils 2737 cells /uL 1500-7 800 normal Not Available [address], [address], 01/29/2022 03:18:56 01/29/20 22 01/29/2022 CBC (INCL UDES DIFF/ PLT) absolute lymphocytes 1532 cells /uL 850-39 00 normal Not Available [address], [address], 01/29/2022 03:18:56 01/29/20 22 01/29/2022 CBC (INCL UDES DIFF/ PLT) absolute monocytes 271 cells /uL 200-95 0 normal Not Available [address], [address], 01/29/2022 03:18:56 01/29/20 22 01/29/2022 CBC (INCL UDES DIFF/ PLT) absolute eosinophils 41 cells /uL 15-500 normal Not Available [address], [address], 01/29/2022 03:18:56 01/29/20 22 01/29/2022 CBC (INCL UDES DIFF/ PLT) absolute basophils 18 cells /uL 0-200 normal Not Available [address], [address], 01/29/2022 03:18:56 01/29/20 22 01/29/2022 CBC (INCL UDES DIFF/ PLT) neutrophils 59.5 % normal Not Available [address], [address], 01/29/2022 03:18:56 01/29/20 22 01/29/2022 CBC (INCL UDES DIFF/ PLT) lymphocytes 33.3 % normal Not Available [address], [address], 01/29/2022 03:18:56 01/29/20 22 01/29/2022 CBC (INCL UDES DIFF/ PLT) monocytes 5.9 % normal Not Available [facility] [address] [place], [address], 01/29/2022 03:18:56 01/29/20 22 01/29/2022 CBC (INCL UDES DIFF/ PLT) eosinophils 0.9 % normal Not Available [facility] [place] [address] [place], [address], 01/29/2022 03:18:56 01/29/20 22 01/29/2022 CBC (INCL UDES DIFF/ PLT) basophils 0.4 % normal Not Available [facility] [address] [address] [place], [address], 01/29/2022 03:18:56 01/29/20 22 01/29/2022 HEMOG LOBIN A1C hemoglobin A1C 5.4 %_of_ total _HGB <5.7 normal For the purpo se of israel tan for the prese nce of diabe kurtis: <5.7% Consi stent with the absen ce of diabe kurtis 5.7-6 .4% Consi stent with incre ased risk for diabe kurtis (pred iabet es) > or =6.5% Consi stent with diabe kurtis This assay resul t is consi stent with a decre ased risk of diabe kurtis. Curre ntly, no conse nsus exist s bryant daniel use of hemog lobin A1c for diagn osis of diabe kurtis in child gloria. Accor ding to Ameri can Diabe kurtis Assoc iatio n (ADA) guide lines , hemog lobin A1c <7.0% repre sents optim al contr ol in non-p regna nt diabe tic patie nts. Diffe rent metri cs may apply to speci fic patie nt popul ation s. Stand ards of Medic al Care in Diabe kurtis(A DA). Not Available [facility] [address] [place], [address], 01/29/2022 03:18:55 01/29/20 22 01/29/2022 COMPR EHENS MARLENE METAB OLIC PANEL glucose 102 mg/dL 65-99 high Fasti ng refer ence inter isaac For someo ne witho ut known diabe kurtis, a gluco se value betwe en 100 and 125 mg/dL is consi stent with predi abete s and shoul d be confi rmed with a follo w-up test. Not Available [address] [address] [place], [address], 01/29/2022 03:18:55 01/29/20 22 01/29/2022 COMPR EHENS MARLENE METAB OLIC PANEL urea nitrogen (BUN) 7 mg/dL 7-25 normal Not Available [facility] [place] [address] [place], [address], 01/29/2022 03:18:55 01/29/20 22 01/29/2022 COMPR EHENS MARLENE METAB OLIC PANEL creatinine 0.71 mg/dL 0.50-0 .97 normal Not Available [facility] [address] [address] [place], [address], 01/29/2022 03:18:55 01/29/20 22 01/29/2022 COMPR EHENS MARLENE METAB OLIC PANEL eGFR 112 mL/mi n/1.7 3m2 > or = 60 normal The eGFR is based on the CKD-E PI 2020 equat ion. To calcu late the new eGFR from a previ ous Creat inine or Cysta tin C resul t, go to https ://nikki koo/randall st s/ kdoqi /gfr% 5Fcal culat or Not Available [facility] [place] [address] [place], [address], 01/29/2022 03:18:55 01/29/20 22 01/29/2022 COMPR EHENS MARLENE METAB OLIC PANEL BUN/creatini ne ratio not applic able (calc ) 6-22 Not Available [facility] [address] [address] [place], [address], 01/29/2022 03:18:55 01/29/20 22 01/29/2022 COMPR EHENS MARLENE METAB OLIC PANEL sodium 139 mmol/ L 135-14 6 normal Not Available [address], [address], 01/29/2022 03:18:55 01/29/20 22 01/29/2022 COMPR EHENS MARLENE METAB OLIC PANEL potassium 4.0 mmol/ L 3.5-5. 3 normal Not Available [address], [address], 01/29/2022 03:18:55 01/29/20 22 01/29/2022 COMPR EHENS MARLENE METAB OLIC PANEL chloride 107 mmol/ L 98-110 normal Not Available [address], [address], 01/29/2022 03:18:55 01/29/20 22 01/29/2022 COMPR EHENS MARLENE METAB OLIC PANEL carbon dioxide 24 mmol/ L 20-32 normal Not Available [address], [address], 01/29/2022 03:18:55 01/29/20 22 01/29/2022 COMPR EHENS MARLENE METAB OLIC PANEL calcium 9.2 mg/dL 8.6-10 .2 normal Not Available [address], [address], 01/29/2022 03:18:55 01/29/20 22 01/29/2022 COMPR EHENS MARLENE METAB OLIC PANEL protein, total 7.0 g/dL 6.1-8. 1 normal Not Available [address], [address], 01/29/2022 03:18:55 01/29/20 22 01/29/2022 COMPR EHENS MARLENE METAB OLIC PANEL albumin 4.1 g/dL 3.6-5. 1 normal Not Available [address] [place], [address], 01/29/2022 03:18:55 01/29/20 22 01/29/2022 COMPR EHENS MARLENE METAB OLIC PANEL globulin 2.9 g/dL_ (calc ) 1.9-3. 7 normal Not Available [address], [address], 01/29/2022 03:18:55 01/29/20 22 01/29/2022 COMPR EHENS MARLENE METAB OLIC PANEL albumin/glob ulin ratio 1.4 (calc ) 1.0-2. 5 normal Not Available [address], [address], 01/29/2022 03:18:55 01/29/20 22 01/29/2022 COMPR EHENS MARLENE METAB OLIC PANEL bilirubin, total 0.3 mg/dL 0.2-1. 2 normal Not Available [address], [address], 01/29/2022 03:18:55 01/29/20 22 01/29/2022 COMPR EHENS MARLENE METAB OLIC PANEL alkaline phosphatase 56 U/L 31-125 normal Not Available [address], [address], 01/29/2022 03:18:55 01/29/20 22 01/29/2022 COMPR EHENS MARLENE METAB OLIC PANEL AST 22 U/L 10-30 normal Not Available [address], [address], 01/29/2022 03:18:55 01/29/20 22 01/29/2022 COMPR EHENS MARLENE METAB OLIC PANEL ALT 28 U/L 6-29 normal Not Available [address], [address], 01/29/2022 03:18:55 01/29/20 22 01/29/2022 LIPID PANEL WITH RATIO S cholesterol, total 176 mg/dL <200 normal Not Available [facility] [place] [address] [place], [address], 01/29/2022 03:18:55 01/29/20 22 01/29/2022 LIPID PANEL WITH RATIO S HDL cholesterol 43 mg/dL > or = 50 low Not Available [facility] [address] [place], [address], 01/29/2022 03:18:55 01/29/20 22 01/29/2022 LIPID PANEL WITH RATIO S triglyceride s 95 mg/dL <150 normal Not Available [facility] [address] [address] [place], [address], 01/29/2022 03:18:55 01/29/20 22 01/29/2022 LIPID PANEL WITH RATIO S LDL-choleste rol 113 mg/dL _(stephen c) high Refer ence range : <100 Luz Maria able range <100 mg/dL for prima ry preve ntion ; <70 mg/dL for patie nts with CHD or diabe tic patie nts with > or = 2 CHD risk facto rs. LDL-C is now calcu lated using the Mercedes n-Hop kins calcu lori n, which is a valid ated novel rano d eliudi fredy arjun r accur acy than the Fried annamaria equat ion in the estim ation of LDL-C . Mercedes cohen SS et al. VENU. 2013; 310(1 9): 2061- 2068 (http ://ed ucati on.Qu Lynne werner CrushBlvds. com/f aq/FA Q164) Not Available [facility] [address] [place], [address], 01/29/2022 03:18:55 01/29/20 22 01/29/2022 LIPID PANEL WITH RATIO S chol/HDLC ratio 4.1 (calc ) <5.0 normal Not Available [facility] [address] [place], [address], 01/29/2022 03:18:55 01/29/20 22 01/29/2022 LIPID PANEL WITH RATIO S LDL/HDL ratio 2.6 (calc ) Below avera ge Risk: <2.34 [place] ge Risk: 2.35- 4.12 Moder ate Risk: 4.13- 5.56 High Risk: >5.57 Not Available [address], [address], 01/29/2022 03:18:55 01/29/20 22 01/29/2022 LIPID PANEL WITH RATIO S non HDL cholesterol 133 mg/dL _(stephen c) <130 high For patie nts with diabe kutris plus 1 major ASCVD risk facto r, treat ing to a non-H DL-C goal of <100 mg/dL (LDL- C of <70 mg/dL ) is yasir gorman c optio n. Not Available [address], [address], 01/29/2022 03:18:55 01/29/2001/29/2022 TSH+F REE T4 TSH 1.15 mIU/L normal Refer ence Range > or = 20 Years 0.40- 4.50 Pregn ralph Range s First trime ster 0.26- 2.66 Secon d trime ster 0.55- 2.73 Third trime ster 0.43- 2.91 Not Available [address], [address], 01/29/2022 03:18:53 01/29/2001/29/2022 TSH+F REE T4 T4, free 1.1 NG/dL 0.8-1. 8 normal Not Available [address], [address], 01/29/2022 03:18:53 02/09/20 23 02/09/2023 TSH+F REE T4 TSH 1.73 mIU/L normal Refer ence Range > or = 20 Years 0.40- 4.50 Pregn ralph Range s First trime ster 0.26- 2.66 Secon d trime ster 0.55- 2.73 Third trime ster 0.43- 2.91 Not Available [address], [address], 02/09/2023 07:50:13 02/09/20 23 02/09/2023 TSH+F REE T4 T4, free 1.0 NG/dL 0.8-1. 8 normal Not Available [address], [address], 02/09/2023 07:50:13 02/09/20 23 02/09/2023 LIPID PANEL WITH RATIO S cholesterol, total 186 mg/dL <200 normal Not Available [address], [address], 02/09/2023 07:50:14 02/09/20 23 02/09/2023 LIPID PANEL WITH RATIO S HDL cholesterol 36 mg/dL > or = 50 low Not Available [address], [address], 02/09/2023 07:50:14 02/09/20 23 02/09/2023 LIPID PANEL WITH RATIO S triglyceride s 80 mg/dL <150 normal Not Available [address], [address], 02/09/2023 07:50:14 02/09/20 23 02/09/2023 LIPID PANEL WITH RATIO S LDL-choleste rol 133 mg/dL _(stephen c) high Refer ence range : <100 Luz Maria able range <100 mg/dL for prima ry preve ntion ; <70 mg/dL for patie nts with CHD or diabe tic patie nts with > or = 2 CHD risk facto rs. LDL-C is now calcu lated using the Mercedes n-Hop kins calcu lori n, which is a valid ated novel metho d aviva pineda accindy than the Fried annamaria equat ion in the estim ation of LDL-C . Mercedes n SS et al. VENU. 2013; 310(1 9): 2061- 2068 (http ://ed ucati on.Viry ramseyDiomics. com/f aq/FA Q164) Not Available [facility] [address] [address] [address] , [place], [address], 02/09/2023 07:50:14 02/09/2002/09/2023 LIPID PANEL WITH RATIO S chol/HDLC ratio 5.2 (calc ) <5.0 high Not Available [facility] [address] [place] [address] [place], [address], 02/09/2023 07:50:14 02/09/2002/09/2023 LIPID PANEL WITH RATIO S LDL/HDL ratio 3.7 (calc ) Below avera ge Risk: <2.34 [place] ge Risk: 2.35- 4.12 Moder ate Risk: 4.13- 5.56 High Risk: >5.57 Not Available [address] [address] [facility] [place], [address], 02/09/2023 07:50:14 02/09/2002/09/2023 LIPID PANEL WITH RATIO S non HDL cholesterol 150 mg/dL _(stephen c) <130 high For patie nts with diabe kurtis plus 1 major ASCVD risk facto r, treat ing to a non-H DL-C goal of <100 mg/dL (LDL- C of <70 mg/dL ) is consi dered a thera peuti c optio n. Not Available [facility] [place] [address] [place], [address], 02/09/2023 07:50:14 02/09/2002/09/2023 COMPR EHENS MARLENE METAB OLIC PANEL glucose 106 mg/dL 65-99 high Fasti ng refer ence inter isaac For someo ne witho ut known diabe kurtis, a gluco se value betwe en 100 and 125 mg/dL is consi stent with predi abete s and shoul d be confi rmed with a follo w-up test. Not Available [address], [address], 02/09/2023 07:50:15 02/09/20 23 02/09/2023 COMPR EHENS MARLENE METAB OLIC PANEL urea nitrogen (BUN) 6 mg/dL 7-25 low Not Available [address], [address], 02/09/2023 07:50:15 02/09/20 23 02/09/2023 COMPR EHENS MARLENE METAB OLIC PANEL creatinine 0.65 mg/dL 0.50-0 .97 normal Not Available [address], [address], 02/09/2023 07:50:15 02/09/20 23 02/09/2023 COMPR EHENS AMRLENE METAB OLIC PANEL eGFR 115 mL/mi n/1.7 3m2 > or = 60 normal Not Available [address], [address], 02/09/2023 07:50:15 02/09/20 23 02/09/2023 COMPR EHENS MARLENE METAB OLIC PANEL BUN/creatini ne ratio 9 (calc ) 6-22 normal Not Available [address], [address], 02/09/2023 07:50:15 02/09/20 23 02/09/2023 COMPR EHENS MARLENE METAB OLIC PANEL sodium 137 mmol/ L 135-14 6 normal Not Available [address], [address], 02/09/2023 07:50:15 02/09/20 23 02/09/2023 COMPR EHENS MARLENE METAB OLIC PANEL potassium 4.0 mmol/ L 3.5-5. 3 normal Not Available [address], [address], 02/09/2023 07:50:15 02/09/20 23 02/09/2023 COMPR EHENS MARLENE METAB OLIC PANEL chloride 109 mmol/ L 98-110 normal Not Available [address], [address], 02/09/2023 07:50:15 02/09/20 23 02/09/2023 COMPR EHENS MARLENE METAB OLIC PANEL carbon dioxide 20 mmol/ L 20-32 normal Not Available [address], [address], 02/09/2023 07:50:15 02/09/20 23 02/09/2023 COMPR EHENS MARLENE METAB OLIC PANEL calcium 9.1 mg/dL 8.6-10 .2 normal Not Available [address], [address], 02/09/2023 07:50:15 02/09/20 23 02/09/2023 COMPR EHENS MARLENE METAB OLIC PANEL protein, total 6.9 g/dL 6.1-8. 1 normal Not Available [address], [address], 02/09/2023 07:50:15 02/09/20 23 02/09/2023 COMPR EHENS MARLENE METAB OLIC PANEL albumin 4.2 g/dL 3.6-5. 1 normal Not Available [address], [address], 02/09/2023 07:50:15 02/09/20 23 02/09/2023 COMPR EHENS MARLENE METAB OLIC PANEL globulin 2.7 g/dL_ (calc ) 1.9-3. 7 normal Not Available [address], [address], 02/09/2023 07:50:15 02/09/20 23 02/09/2023 COMPR EHENS MARLENE METAB OLIC PANEL albumin/glob ulin ratio 1.6 (calc ) 1.0-2. 5 normal Not Available [address], [address], 02/09/2023 07:50:15 02/09/20 23 02/09/2023 COMPR EHENS MARLENE METAB OLIC PANEL bilirubin, total 0.3 mg/dL 0.2-1. 2 normal Not Available [address], [address], 02/09/2023 07:50:15 02/09/20 23 02/09/2023 COMPR EHENS MARLENE METAB OLIC PANEL alkaline phosphatase 52 U/L 31-125 normal Not Available [facility] [address], [address], 02/09/2023 07:50:15 02/09/20 23 02/09/2023 COMPR EHENS MARLENE METAB OLIC PANEL AST 13 U/L 10-30 normal Not Available [address], [address], 02/09/2023 07:50:15 02/09/20 23 02/09/2023 COMPR EHENS MARLENE METAB OLIC PANEL ALT 12 U/L 6-29 normal Not Available [address], [address], 02/09/2023 07:50:15 02/09/20 23 02/09/2023 HEMOG LOBIN A1C hemoglobin A1C 5.4 %_of_ total _HGB <5.7 normal For the purpo se of screchristopher tan for the prese nce of diabe kurtis: <5.7% Consi stent with the absen ce of diabe kurtis 5.7-6 .4% Consi stent with incre ased risk for diabe kurtis (pred iabet es) > or =6.5% Consi stent with diabe kurtis This assay resul t is consi stent with a decre ased risk of diabe kurtis. Curre ntly, no conse nsus exist s regar ding use of hemog lobin A1c for diagn osis of diabe kurtis in child gloria. Accor ding to Ameri can Diabe kurtis Assoc iatio n (ADA) guide lines , hemog lobin A1c <7.0% repre sents optim al contr ol in non-p regna nt diabe tic patie nts. Diffe rent metri cs may apply to speci fic patie nt popul ation s. Stand ards of Medic al Care in Diabe kurtis(A DA). Not Available [facility] [address], [address], 02/09/2023 07:50:16 02/09/2002/09/2023 CBC (INCL UDES DIFF/ PLT) white blood cell count 5.3 thous and/u L 3.8-10 .8 normal Not Available [facility] [address], [address], 02/09/2023 07:50:17 02/09/20 23 02/09/2023 CBC (INCL UDES DIFF/ PLT) red blood cell count 3.94 lyubov on/uL 3.80-5 .10 normal Not Available [facility] [address], [address], 02/09/2023 07:50:17 02/09/20 23 02/09/2023 CBC (INCL UDES DIFF/ PLT) hemoglobin 11.1 g/dL 11.7-1 5.5 low Not Available [facility] [address], [address], 02/09/2023 07:50:17 02/09/20 23 02/09/2023 CBC (INCL UDES DIFF/ PLT) hematocrit 32.7 % 35.0-4 5.0 low Not Available [facility] [address], [address], 02/09/2023 07:50:17 02/09/20 23 02/09/2023 CBC (INCL UDES DIFF/ PLT) MCV 83.0 fL 80.0-1 00.0 normal Not Available [address], [address], 02/09/2023 07:50:17 02/09/20 23 02/09/2023 CBC (INCL UDES DIFF/ PLT) MCH 28.2 pg 27.0-3 3.0 normal Not Available [address], [address], 02/09/2023 07:50:17 02/09/20 23 02/09/2023 CBC (INCL UDES DIFF/ PLT) MCHC 33.9 g/dL 32.0-3 6.0 normal Not Available [address], [address], 02/09/2023 07:50:17 02/09/2002/09/2023 CBC (INCL UDES DIFF/ PLT) RDW 12.9 % 11.0-1 5.0 normal Not Available [address], [address], 02/09/2023 07:50:17 02/09/2002/09/2023 CBC (INCL UDES DIFF/ PLT) platelet count 222 thous and/u L 140-40 0 normal Not Available [address], [address], 02/09/2023 07:50:17 02/09/20 23 02/09/2023 CBC (INCL UDES DIFF/ PLT) MPV 10.5 fL 7.5-12 .5 normal Not Available [address], [address], 02/09/2023 07:50:17 02/09/2002/09/2023 CBC (INCL UDES DIFF/ PLT) absolute neutrophils 3116 cells /uL 1500-7 800 normal Not Available [address], [address], 02/09/2023 07:50:17 02/09/20 23 02/09/2023 CBC (INCL UDES DIFF/ PLT) absolute lymphocytes 1786 cells /uL 850-39 00 normal Not Available [address], [address], 02/09/2023 07:50:17 02/09/20 23 02/09/2023 CBC (INCL UDES DIFF/ PLT) absolute monocytes 339 cells /uL 200-95 0 normal Not Available [address], [address], 02/09/2023 07:50:17 02/09/20 23 02/09/2023 CBC (INCL UDES DIFF/ PLT) absolute eosinophils 48 cells /uL 15-500 normal Not Available [address], [address], 02/09/2023 07:50:17 02/09/20 23 02/09/2023 CBC (INCL UDES DIFF/ PLT) absolute basophils 11 cells /uL 0-200 normal Not Available [address], [address], 02/09/2023 07:50:17 02/09/20 23 02/09/2023 CBC (INCL UDES DIFF/ PLT) neutrophils 58.8 % normal Not Available [address], [address], 02/09/2023 07:50:17 02/09/20 23 02/09/2023 CBC (INCL UDES DIFF/ PLT) lymphocytes 33.7 % normal Not Available [address], [address], 02/09/2023 07:50:17 02/09/20 23 02/09/2023 CBC (INCL UDES DIFF/ PLT) monocytes 6.4 % normal Not Available [address], [address], 02/09/2023 07:50:17 02/09/20 23 02/09/2023 CBC (INCL UDES DIFF/ PLT) eosinophils 0.9 % normal Not Available [address], [address], 02/09/2023 07:50:17 02/09/20 23 02/09/2023 CBC (INCL UDES DIFF/ PLT) basophils 0.2 % normal Not Available [address], [address], 02/09/2023 07:50:17 02/09/20 23 02/09/2023 URINA LYSIS REFLE X color YELLOW yellow normal Not Available [address], [address], 02/09/2023 07:50:17 02/09/20 23 02/09/2023 URINA LYSIS REFLE X appearance CLOUDY clear abnormal Not Available [address], [address], 02/09/2023 07:50:17 02/09/20 23 02/09/2023 URINA LYSIS REFLE X specific gravity 1.011 1.001- 1.035 normal Not Available [address], [id number], 02/09/2023 07:50:17 02/09/20 23 02/09/2023 URINA LYSIS REFLE X pH 5.5 5.0-8. 0 normal Not Available [address], [address], 02/09/2023 07:50:17 02/09/20 23 02/09/2023 URINA LYSIS REFLE X glucose NEGATI VE negati ve normal Not Available [address], [address], 02/09/2023 07:50:17 02/09/20 23 02/09/2023 URINA LYSIS REFLE X bilirubin NEGATI VE negati ve normal Not Available [address], [address], 02/09/2023 07:50:17 02/09/20 23 02/09/2023 URINA LYSIS REFLE X ketones NEGATI VE negati ve normal Not Available [address], [address], 02/09/2023 07:50:17 02/09/20 23 02/09/2023 URINA LYSIS REFLE X occult blood TRACE negati ve abnormal Not Available [address], [id number], 02/09/2023 07:50:17 02/09/20 23 02/09/2023 URINA LYSIS REFLE X protein NEGATI VE negati ve normal Not Available [address], [address], 02/09/2023 07:50:17 02/09/20 23 02/09/2023 URINA LYSIS REFLE X nitrite NEGATI VE negati ve normal Not Available [address], [address], 02/09/2023 07:50:17 02/09/20 23 02/09/2023 URINA LYSIS REFLE X leukocyte esterase 3+ negati ve abnormal Not Available [address], [address], 02/09/2023 07:50:17 02/09/20 23 02/09/2023 URINA LYSIS REFLE X WBC 10-20 /hpf < or = 5 abnormal Not Available [address], [address], 02/09/2023 07:50:17 02/09/20 23 02/09/2023 URINA LYSIS REFLE X RBC NONE SEEN /hpf < or = 2 normal Not Available [address], [address], 02/09/2023 07:50:17 02/09/20 23 02/09/2023 URINA LYSIS REFLE X squamous epithelial cells 40-60 /hpf < or = 5 abnormal Not Available [address], [address], 02/09/2023 07:50:17 02/09/20 23 02/09/2023 URINA LYSIS REFLE X bacteria FEW /hpf none seen abnormal Not Available [facility] 49 [address], [address], 02/09/2023 07:50:17 02/09/20 23 02/09/2023 URINA LYSIS REFLE X calcium oxalate crystals NONE SEEN /hpf none or few normal Not Available [address], [address], 02/09/2023 07:50:17 02/09/20 23 02/09/2023 URINA LYSIS REFLE X hyaline cast NONE SEEN /lpf none seen normal Not Available [address], [address], 02/09/2023 07:50:17 02/09/20 23 02/09/2023 URINA LYSIS REFLE X yeast NONE SEEN /hpf none seen normal Not Available [address], [address], 02/09/2023 07:50:17 02/09/20 23 02/09/2023 NOTE note This urine was alex zed for the prese nce of WBC, RBC, bacte al, casts , and other forme d eleme nts. Only those eleme nts seen were repor hiram. Not Available [address], [address], 02/09/2023 07:50:18 08/29/19 24 08/29/2023 LIPID PANEL WITH RATIO S cholesterol, total 191 mg/dL <200 normal Not Available [address] [address] [place], [address], 08/29/2023 21:11:42 08/29/19 24 08/29/2023 LIPID PANEL WITH RATIO S HDL cholesterol 44 mg/dL > or = 50 low Not Available [facility] [address] [address] [place], [address], 08/29/2023 21:11:42 08/29/19 24 08/29/2023 LIPID PANEL WITH RATIO S triglyceride s 95 mg/dL <150 normal Not Available [facility] [address], [address], 08/29/2023 21:11:42 08/29/19 24 08/29/2023 LIPID PANEL WITH RATIO S LDL-choleste rol 127 mg/dL _(stephen c) high Refer ence range : <100 Luz Maria able range <100 mg/dL for prima ry preve ntion ; <70 mg/dL for patie nts with CHD or diabe tic patie nts with > or = 2 CHD risk facto rs. LDL-C is now calcu lated using the Mercedes n-Hop kins calcu lori n, which is a valid ated novel metho d provi ding arjun r accur acy than the Fried annamaria equat ion in the estim ation of LDL-C . Mercedes cohen SS et al. VENU. 2013; 310(1 9): 2061- 2068 (http ://ed ucati on.Qu Lynne PlaceFirsts. com/f aq/FA Q164) Not Available [facility] [address] [address] [place], [address], 08/29/2023 21:11:42 08/29/19 24 08/29/2023 LIPID PANEL WITH RATIO S chol/HDLC ratio 4.3 (calc ) <5.0 normal Not Available [facility] [address] [address] [place], [address], 08/29/2023 21:11:42 08/29/19 24 08/29/2023 LIPID PANEL WITH RATIO S LDL/HDL ratio 2.9 (calc ) Below avera ge Risk: <2.34 [place] ge Risk: 2.35- 4.12 Moder ate Risk: 4.13- 5.56 High Risk: >5.57 Not Available [address] [address] [place], [address], 08/29/2023 21:11:42 08/29/19 24 08/29/2023 LIPID PANEL WITH RATIO S non HDL cholesterol 147 mg/dL _(stephen c) <130 high For patie nts with diabe kurtis plus 1 major ASCVD risk facto r, treat ing to a non-H DL-C goal of <100 mg/dL (LDL- C of <70 mg/dL ) is consi dered a thera peuti c optio n. Not Available [address], [address], 08/29/2023 21:11:42 08/29/19 24 08/29/2023 COMPR EHENS MARLENE METAB OLIC PANEL glucose 112 mg/dL 65-99 high Fasti ng refer ence inter isaac For someo ne witho ut known diabe kurtis, a gluco se value betwe en 100 and 125 mg/dL is consi stent with predi abete s and shoul d be confi rmed with a follo w-up test. Not Available [address] [address] [place], [address], 08/29/2023 21:11:44 08/29/19 24 08/29/2023 COMPR EHENS MARLENE METAB OLIC PANEL urea nitrogen (BUN) 10 mg/dL 7-25 normal Not Available [address] [address] [place], [address], 08/29/2023 21:11:44 08/29/19 24 08/29/2023 COMPR EHENS MARLENE METAB OLIC PANEL creatinine 0.79 mg/dL 0.50-0 .97 normal Not Available [address], [address], 08/29/2023 21:11:44 08/29/19 24 08/29/2023 COMPR EHENS MARLENE METAB OLIC PANEL eGFR 98 mL/mi n/1.7 3m2 > or = 60 normal Not Available [address], [address], 08/29/2023 21:11:44 08/29/19 24 08/29/2023 COMPR EHENS MARLENE METAB OLIC PANEL BUN/creatini ne ratio SEE NOTE: (calc ) 6-22 Not Repor hiram: BUN and Creat inine are withi n refer ence range . Not Available [address], [address], 08/29/2023 21:11:44 08/29/19 24 08/29/2023 COMPR EHENS MARLENE METAB OLIC PANEL sodium 136 mmol/ L 135-14 6 normal Not Available [address], [address], 08/29/2023 21:11:44 08/29/19 24 08/29/2023 COMPR EHENS MARLENE METAB OLIC PANEL potassium 4.2 mmol/ L 3.5-5. 3 normal Not Available [address], [address], 08/29/2023 21:11:44 08/29/19 24 08/29/2023 COMPR EHENS MARLENE METAB OLIC PANEL chloride 107 mmol/ L 98-110 normal Not Available [address], [address], 08/29/2023 21:11:44 08/29/19 24 08/29/2023 COMPR EHENS MARLENE METAB OLIC PANEL carbon dioxide 21 mmol/ L 20-32 normal Not Available [address], [address], 08/29/2023 21:11:44 08/29/19 24 08/29/2023 COMPR EHENS MARLENE METAB OLIC PANEL calcium 9.1 mg/dL 8.6-10 .2 normal Not Available [address], [address], 08/29/2023 21:11:44 08/29/19 24 08/29/2023 COMPR EHENS MARLENE METAB OLIC PANEL protein, total 7.2 g/dL 6.1-8. 1 normal Not Available [address], [address], 08/29/2023 21:11:44 08/29/19 24 08/29/2023 COMPR EHENS MARLENE METAB OLIC PANEL albumin 4.2 g/dL 3.6-5. 1 normal Not Available [address], [address], 08/29/2023 21:11:44 08/29/19 24 08/29/2023 COMPR EHENS MARLENE METAB OLIC PANEL globulin 3.0 g/dL_ (calc ) 1.9-3. 7 normal Not Available [address], [address], 08/29/2023 21:11:44 08/29/19 24 08/29/2023 COMPR EHENS MARLENE METAB OLIC PANEL albumin/glob ulin ratio 1.4 (calc ) 1.0-2. 5 normal Not Available [address], [address], 08/29/2023 21:11:44 08/29/19 24 08/29/2023 COMPR EHENS MARLENE METAB OLIC PANEL bilirubin, total 0.2 mg/dL 0.2-1. 2 normal Not Available [address], [address], 08/29/2023 21:11:44 08/29/19 24 08/29/2023 COMPR EHENS MARLENE METAB OLIC PANEL alkaline phosphatase 61 U/L 31-125 normal Not Available [address] [address] [place], [address], 08/29/2023 21:11:44 08/29/19 24 08/29/2023 COMPR EHENS MARLENE METAB OLIC PANEL AST 16 U/L 10-30 normal Not Available [address] [address] [place], [address], 08/29/2023 21:11:44 08/29/19 24 08/29/2023 COMPR EHENS MARLENE METAB OLIC PANEL ALT 14 U/L 6-29 normal Not Available [address] [address] [place], [address], 08/29/2023 21:11:44 02/23/20 22 02/18/2022 US, abdom en, compl ete No observ ation record ed. [id number] [facility] [address], [place], [address], 09/07/2022 17:31:22 Result Notes None recorded. Problems Name Problem SNOMED Code Status Onset Date Resolution Date Notes Provider Name and Address Organization Details Recorded Time Cellulitis of face 392353390 Active Not Available [facility] 3 17:30:03 Skin hypopigmented 34384062 Active Not Available [facility] 3 17:30:03 Frontal headache 422755584 Active Not Available [facility] 3 17:30:03 Left sided abdominal pain 352306041 Active 2021 Not Available [facility] 3 17:30:03 Vitamin D deficiency 10408248 Active Not Available [facility] 3 17:30:03 Chronic seborrheic dermatitis 795822648 Active Not Available [facility] 3 17:30:03 Pain of breast 96516030 Active Not Available [facility] 3 17:30:03 Frontal sinusitis 76658952 Active Not Available [facility] 3 17:30:03 Breast lump 57039917 Active Not Available [facility] 3 17:30:03 Impaired fasting glycemia 627013467 Active 2022 CARLA Koroma [address], [place], [address] , [facility] [employer] 3 11:25:43 Hyperlipidemi a 41935870 Active 2022 CARLA Koroma [address], [address], [place], [address] , [facility] Inside [facility] [employer] 3 11:25:47 Hyperinsulini sm 40210098 Active 2022 CARLA Koroma [address], [address], [place], [address] , [facility] [employer] 3 11:25:50 Acute urinary tract infection 269164371 Active 2022 CARLA Koroma [address], [place], [address] , [facility] Inside [facility] [employer] 11:25:57 Problem Notes None recorded. Procedures Surgical History Date Name Laterality Status Provider Name and Address Organization Details Recorded Time 3 dilation and curettage completed Not Available [facility] 09/07/2022 17:29:05 Imaging Results Imaging Date Name Status LastModified by Organiz ation Details LastModified Time 02/18/2022 US, abdomen, complete completed [id number] [facility] [address], [place], [address], 09/07/2022 17:31:22 Procedure Notes None recorded. Medical Equipment None Reported. Allergies Allergen ID Allergen Name Allergen Category Reaction Reaction Severity Criticality Documentation Date Start Date Code Code System Note Provider Name and Address Organization Details Recorded Time 41351 codeine medicatio n nausea Not available Not available 09/07/2022 2670 RxNorm Not Available [facility] 17:31:19 Medications Name Sig Start Date Stop Date Status Note LastModified by Organization Details LastModified Time Lidocaine Viscous 2 % mucosal solution active Not Available Not Available Not Available fluconazole 150 mg tablet TK 1 T PO QD FOR 1 DAY 05/22 completed Not Available Not Available Not Available triamcinolo ne acetonide 0.1 % topical cream APPLY A THIN LAYER TO THE breast area BY TOPICAL ROUTE 2 TIMES PER DAY x 5-7 days 01/21 completed Not Available Not Available Not Available amoxicillin 400 mg-potassiu m clavulanate 57 mg/5 mL oral suspension SHAKE LIQUID AND TAKE 10 ML BY MOUTH EVERY 12 HOURS FOR 7 DAYS. DISCARD REMAINDER active Not Available Not Available No t Available amoxicillin 875 mg tablet Take 1 tablet every 12 hours by oral route. active Not Available Not Available No t Available pantoprazol e 40 mg tablet,nas yed release 05/10 completed Not Available Not Available Not Available cephalexin 250 mg/5 mL oral suspension active Not Available Not Available N ot Available fluocinolon e 0.01 % topical body oil active Not Available Not Available Not Available ergocalcife rol (vitamin D2) 1,250 mcg (50,000 unit) capsule TAKE 1 CAPSULE BY MOUTH EVERY WEEK DIRECTED 01/24 completed Not Available Not Available Not Available famotidine 40 mg/5 mL (8 mg/mL) oral suspension Take 2.5 mL twice a day by oral route. 05/10 completed Not Available Not Available Not Available ketoconazol e 2 % topical cream 05/10 completed Not Available Not Available Not Available ondansetron 4 mg disintegrat ing tablet DIS ONE T PO Q 6 H PRN N 05/10 completed Not Available Not Available Not Available betamethaso ne dipropionat e 0.05 % lotion 05/10 completed Not Available Not Available Not Available ergocalcife rol (vitamin D2) 200 mcg/mL (8,000 unit/mL) oral drops Take 1 mL every day by oral route as directed. 05/22 completed Not Available Not Available Not Available clobetasol 0.05 % lotion APPLY A THIN LAYER TO THE forehead/ nose/neck BY TOPICAL ROUTE 2 TIMES PER DAY PRN only 05/10 completed Not Available Not Available Not Available metoprolol tartrate 25 mg tablet 05/10 completed Not Available Not Available Not Available clobetasol 0.05 % shampoo APPLY A THIN LAYER BY TOPICAL ROUTE ONCE DAILY TO DRY SCALP LEAVE IN PLACE 15 MIN. THEN LATHER AND RINSE. PRN 05/10 completed Not Available Not Available Not Available nitrofurant oin monohydrate /macrocryst als 100 mg capsule TK 1 C PO Q 12 H 05/22 completed Not Available Not Available Not Available mometasone 0.1 % topical solution APPLY TO SCALP IN 3 ROWS TWICE DAILY NEEDED. RUB IN. DO NOT RISNE active Not Available Not Available No t Available Vitals Date Recorded Body mass index (BMI) Body height Oxygen saturation Oxygen saturation in Arterial blood by Pulse oximetry Heart rate Respiratory rate Body temperature Body weight Systolic blood pressure Diastolic blood pressure Provider Name and Address Organization Details Last Updated DateTime 2 33.4 kg/m2 147.32 cm 97 % 97 % 92 /min 16 /min 98.1 [degF] 84102.0 6 g 128 mm[Hg] 80 mm[Hg] Not Available [facility] 3 17:29:19 Date Recorded Body height Body temperature Body mass index (BMI) Body weight Respiratory rate Oxygen saturation Oxygen saturation in Arterial blood by Pulse oximetry Heart rate Systolic blood pressure Diastolic blood pressure Provider Name and Address Organization Details Last Updated DateTime 3 147.32 cm 98.1 [degF] 33.4 kg/m2 79833.7 8 g 16 /min 98 % 98 % 92 /min 130 mm[Hg] 82 mm[Hg] RICHARD Yang [place] Inside [facility] [employer] 3 11:10:33 Date Recorded Systolic blood pressure Diastolic blood pressure Provider Name and Address Organization Details Last Updated DateTime 02/10/2023 120 mm[Hg] 82 mm[Hg] CARLA Koroma [address] [facility] [address], [place], [address], [employer] 02/10/2023 11:28:50 Social History Question Answer Notes LastModified by Organizat ion Details LastModified Time Tobacco Smoking Status Never Smoker Not Available [facility] 09/07/2022 17:28:52 Do You Have An Advance Directive? No [id number] Information not available 09/07/2022 What Is Your Level Of Alcohol Consumption? None [id number] Information not available 09/07/2022 What Is Your Level Of Caffeine Consumption? Occasional [id number] Information not available 09/07/2022 In The 14 Days Before Symptom Onset, Have You Had Close Contact With A Laboratory-confir med COVID-19 While That Case Was Ill? No [id number] Information not available 09/07/2022 In The 14 Days Before Symptom Onset, Have You Had Close Contact With A Person Who Is Under Investigation For COVID-19 While That Person Was Ill? No [id number] Information not available 09/07/2022 What Type Of Diet Are You Following? REGULAR [id number] Information not available 09/07/2022 What Is Your Occupation? [employer] [id number] Information not available 09/07/2022 Have There Been Any Changes To Your Family Or Social Situation? No [id number] Information not available 09/07/2022 Are There Any Guns Present In Your Home? No [id number] Information not available 09/07/2022 Do You Use Insect Repellent Routinely? No [id number].[id number] Information not available 09/07/2022 Do You Have A Medical Power Of Tests Superintendent? No MIGRATION.[id number] Information not available 09/07/2022 What Is Your Relationship Status? MIGRATION.035801 [id number] Information not available 09/07/2022 Do You Use Your Seat Belt Or Car Seat Routinely? Yes [id number].[id number] 3751 Information not available 09/07/2022 Do You Have Smoke And Carbon Monoxide Detectors In Your Home? Yes [id number].[id number] 2701 Information not available 09/07/2022 Do You Use Any Illicit Or Recreational Drugs? No MIGRATION.723550 0523 Information not available 09/07/2022 Do You Use Sunscreen Routinely? No MIGRATION.[id number] Information not available 09/07/2022 Have You Recently Traveled Abroad? No MIGRATION.[id number] 0200 Information not available 09/07/2022 Do You Have Any Dietary Restrictions? No MIGRATION.636571 0138 Information not available 09/07/2022 Do You Or Have You Ever Used Any Other Forms Of Tobacco Or Nicotine? No MIGRATION.[id number] 7788 Information not available 09/07/2022 Sex: Unknown Functional Status Question Answer Note LastModified by Organizat ion Details LastModified Time What is your exercise level? Occasional [id number] Information not available 09/07/2022 Mental Status None recorded. Family History Relationship Description Onset Age of this Age Resolved Age Notes LastModified by Organization Details LastModified Time Mother Hypertensive disorder [id number] Not available 09/07/2022 17:29:06 Father Cerebrovascu lar accident [id number] Not available 09/07/2022 17:29:06 Father Chronic obstructive pulmonary disease [id number] Not available 09/07/2022 17:29:06 Sister Hypertensive disorder [id number] Not available 09/07/2022 17:29:06 Medical History Condition Response SKIN PROBLEMS Y HEADACHES/MIGRAINES Y BOWEL PROBLEMS Y BACK / NECK PROBLEMS Y BLOOD CLOTS Y Gynecological History Statement/Question Response Menses Monthly Y Abnormal Pap N Date of Last Pap 02/04/2019 Date of Last Mammogram 10/20/2020 Sexually Active? Y Obstetrics History GPAL:G 0 P 0 0 0 0 Immunizations Vaccine Type Date Status Note Provider Nam e and Address Organization Details Recorded Time influenza, unspecified formulation 7 completed Not Available [facility] 09/07/2022 17:31:13 TST-PPD intradermal 5 completed Not Available [facility] 09/07/2022 17:31:13 influenza, unspecified formulation 5 completed Not Available [facility] 09/07/2022 17:31:13 influenza, unspecified formulation 4 completed Not Available [facility] 09/07/2022 17:31:13 Influenza, split virus, quadrivalent, PF 0 completed Not Available [facility] 09/07/2022 17:31:13 Influenza, split virus, quadrivalent, PF 9 completed Not Available [facility] 09/07/2022 17:31:13 Influenza, split virus, quadrivalent, PF 8 completed Not Available [facility] 09/07/2022 17:31:13 Past Encounters Encounter ID Performer Location Encounter Start Date Encounter Closed Date Diagnosis/Indication Diagnosis SNOMED-CT Code Diagnosis ICD10 Code Diagnosis Note [id number] Everett Fitch MD [facility] [facility] [place] [address] [place] [address] 01/24/2022 00:00:00 02/06/2022 00:10:13 [id number] CARLA Koroma [facility] [facility] [place] [address] [place] [address] 02/10/2023 11:06:33 02/10/2023 11:36:33 Adult health examination 544137029 Z00.01 well exam completed. labs ordered. Impaired f asting glycemia 958372759 R73.01 IFG hx. 106 fasting glucose. 5.4% a1c Hyperlipidemia 87860867 E78.5 total 186, HDL 36, LDL 133 and trigs 80. diet and exercise repeat labs in jun. Hyperinsulinism 10552542 E16.1 insulin levels being followed by gyne for possible PCOS. Acute urin michelle tract infection 033118618 N39.0 tx with augmentin soln. Body mass index 30+ - obesity 985498590 Z68.33 Health Concerns Section Related Observation LastModified by Organization Detai ls LastModified Time None Recorded Concern Status LastModified by Organization Details LastModified Time None Recorded Advance Directives Directive N: Payers Encounter Date Sequence Insurance Name Policy Number Policy Wade Covered Member ID Wade Member ID Guarantor Name 02/10/2023 1 [facility] [id number] Nina Francisco [id number] Nina Francisco Notes Date Note Type Note Provider Name and Address Organization Details Recorded Time 01/24/2022 text/html Generic HPI TemplateReported bypatient.Notes:Pt is here for her wellness. No chronic prob/meds. No complaints today. She didn't get any labs done. Not Available [employer] 02/06/2022 00:10:13 02/10/2023 text/html Generic HPI TemplateReported bypatient.Notes:Pt is here for her wellness. No chronic prob/meds. Wellness CARLA Koroma [address] [facility] [facility] [address], [place], [address], [employer] 03/09/2023 23:51:33 OBGyn Episode No OBEpisode recorded.
== END 2024-11-14 10:29 | disposition home or self-care (01) ==
PROVIDERS: PCP Family Medicine; Visit Provider Nurse Practitioner
DX: N60.11 Diffuse cystic mastopathy of right breast (principal); N63.11 Unspecified lump in the right breast, upper outer quadrant
CPT/HCPCS: 76641; 77062; 77066; G0279

== ENCOUNTER 2024-11-25 14:48 | Outpatient (CLI) | payer BC, SELFPAY ==
--- NOTE | ~2024-11-25 | CT_ITS ---
CT of the Abdomen and Pelvis: Indication: Abdominal swelling, mass Technique: 2.5 mm axial scans were obtained through the abdomen and pelvis following intravenous adm inistration of 100 cc of Omnipaque 350. Dose reduction technique was used on this scan by utilizing a utomated exposure control and iterative reconstruction technique. The dose-length product (DLP) was 5 06.62 mGy-cm. Findings: Scans through the lung bases are unremarkable. Diffuse hepatic steatosis present. The spleen, pancreas, gallbladder, adrenals and kidneys are within normal limits. No evidence of aortic aneurysm. No lymphadenopathy. No bowel obstruction or bowel wall thickening. There is no evidence to suggest acute appendicitis. Images through the pelvis were performed. Urinary bladder unremarkable. Posterior exophytic fibroid m easures 5 cm in diameter. No other adnexal mass seen. No ascites. There is suggestion of diffuse sclerotic change of the osseous structures. Impression: Diffuse hepatic steatosis. 5 cm exophytic fibroid. Questionable subtle diffuse sclerosis of the osseous structures. Correlate for metabolic bone disease . Reviewed, dictated and finalized at location . Impression: Diffuse hepatic steatosis. 5 cm exophytic fibroid. Questionable subtle diffuse sclerosis of the osseous structures. Correlate for metabolic bone disease.
[2024-11-25 15:27] LABS: Estimated Glomerular Filt Rate > 60
== END 2024-11-25 14:49 | disposition home or self-care (01) ==
PROVIDERS: PCP Family Medicine; Visit Provider Family Medicine
DX: K76.0 Fatty (change of) liver, not elsewhere classified (principal); D25.9 Leiomyoma of uterus, unspecified; R22.2 Localized swelling, mass and lump, trunk
CPT/HCPCS: 74177; Q9967

== ENCOUNTER 2025-01-09 08:04 | Outpatient (CLI) | payer BC, SELFPAY ==
--- NOTE | ~2025-01-09 | US_ITS ---
Limited Abdominal Sonogram: Real-time sonographic imaging of the right upper quadrant was performed. Clinical History: Hepatic steatosis Findings: The liver appears echogenic, with no evidence of mass lesion or bile duct dilatation. Main portal vein demonstrates normal direction of flow. The gallbladder is well distended, and appears no rmal with no evidence of gallstone or wall thickening. The common bile duct measures 4 mm. The visua lized pancreas, aorta, and IVC are unremarkable. Impression: Diffuse fatty infiltration of liver. Reviewed, dictated and finalized at location M. Impression: Diffuse fatty infiltration of liver.
== END 2025-01-09 08:05 | disposition home or self-care (01) ==
LOC: MICIMG 08:05
PROVIDERS: PCP Family Medicine; Visit Provider Family Medicine
DX: K76.0 Fatty (change of) liver, not elsewhere classified (principal)
CPT/HCPCS: 76705